=== PATIENT | female | born 1950 | race Caucasian/White ===

== ENCOUNTER 2024-01-21 17:10 | Emergency (ER) | payer MEDICARE, OTHER, SELFPAY ==
[2024-01-21 17:13] VITALS: BP 142/90
[2024-01-21 17:39] VITALS: BP 142/77
[2024-01-21 17:50] LABS: % Basophils 1.1 % (0-2); % Eosinophils 3.1 % (0-6); % Immature Granulocytes 0.4 % (0-0.5); % Lymphocytes 42.6 % (20.5-51.1); % Monocytes 9.2 % (1.7-9.3); % Neutrophils 43.6 % (42.2-75.2); Absolute Basophils 0.1 10^3/uL (0-0.2); Absolute Eosinophils 0.2 10^3/uL (0-0.7); Absolute Lymphocytes 3.2 10^3/uL (1.2-3.4); Absolute Monocytes 0.7 10^3/uL (0.1-0.6); Absolute Neutrophils 3.3 10^3/uL (1.4-6.5); Hemoglobin 12.4 g/dL (12.0-16.0); Mean Corp Hgb Conc. 34.4 g/dL (33.0-37.0); Mean Corpuscular Hgb 27.2 pg (27.0-31.0); Mean Corpuscular Volume 78.9 fL (81.0-99.0); Mean Platelet Volume 8.8 fL (7.4-10.4); Nucleated Red Blood Cells % 0 %; Platelet Count 344 10^3/uL (130-400); Red Blood Cell Count 4.56 10^6/uL (4.20-5.40); Red Cell Dist. Width 13.3 % (11.5-14.5); White Blood Cell Count 7.5 10^3/uL (4.8-10.8)
[2024-01-21 18:00] VITALS: BP 146/85
[2024-01-21 18:01] LABS: COVID-19 Antigen Negative (Negative)
[2024-01-21 18:03] LABS: ALT (SGPT) 22 U/L (0-35); AST (SGOT) 25 U/L (14-36); Albumin 4.4 g/dl (3.5-5.0); Alkaline Phosphatase 65 U/L (38-126); Blood Urea Nitrogen 21 mg/dl (7-17); Calcium 9.8 mg/dl (8.4-10.2); Carbon Dioxide 22 mmol/L (22-30); Chloride 97 mmol/L (98-107); Glucose 91 mg/dl (70-99); Potassium 4.4 mmol/L (3.5-5.1); Sodium 134 mmol/L (135-145); Total Bilirubin 0.5 mg/dl (0.2-1.3); Total Protein 6.9 g/dl (6.3-8.2); eGFR > 60.00
[2024-01-21 18:08] VITALS: BMI 25.8
[2024-01-21 18:48] LABS: D-Dimer < 0.27 ug/mlFEU (0.00-0.50)
[2024-01-21 18:49] LABS: Troponin I < 0.012 ng/ml
[2024-01-21 19:01] VITALS: BP 158/83
[2024-01-21] MEDS: INDERAL 10 MG PO (19:13)
--- NOTE | 2024-01-21 19:47 | ED.GENMED ---
History of Present Illness
General
Chief Complaint: Breathing Problem
Source: patient
Exam Limitations: none
Time Seen by Provider: 01/21/24 17:41
History of Present Illness
History of Present Illness:
73-year-old female presents with onset of chest tightness and shortness of breath starting earlier today. She is on her very large amount of stress. She feels she might be having an anxiety attack. She denies fever. The pain is slightly worse
with deep breathing. No known injury. No recent travel or surgery. She is not on any hormones. No leg swelling or calf
Phy Exam
Physical Exam
Physical Exam:
General: Anxious appearing female no acute respiratory distress
HEENT: Normocephalic atraumatic
Heart: Regular rate and rhythm no murmurs
Lungs: Clear no wheeze abdomen: Soft nontender nondistended
Extremities: No cyanosis no calf pain
Scores
Heart Failure Risk
Heart Failure Risk Score: Not Applicable
Course
Orders/Labs/Results
Orders:
Orders
01/21/24 17:17
EKG [Electrocardiogram (*1)] Urgent
Reason for Study: Shortness of Breath
EKG- Treatment ONCE
01/21/24 17:28
CBC/With Diff [Complete Blood Count/With Diff] Urgent
CMP [Comprehensive Metabolic Panel] Urgent
COVID-19 Antigen Urgent
Source: Nasal Swab
01/21/24 18:16
D-Dimer Urgent
Troponin I Urgent
01/21/24 18:43
Propranolol [Inderal] 10 mg PO NOW STA
01/21/24 19:09
CR Chest - 2 Views Urgent
Comment:
Reason For Exam: sob
Abnormal Lab Results
01/21/24
17:28
Hct 36.0 L %
(37.0-47.0)
MCV 78.9 L fL
(81.0-99.0)
Absolute Monos (auto) 0.7 H 10^3/uL
(0.1-0.6)
Sodium 134 L mmol/L
(135-145)
Chloride 97 L mmol/L
(98-107)
BUN 21 H mg/dl
(7-17)
01/21/24 17:28
01/21/24 17:28
Vital Signs
Initial and Last Documented VS:
Initial Vital Signs
Temp Pulse Resp BP Pulse Ox
98.2 F 73 25 142/90 100
01/21/24 17:13 01/21/24 17:13 01/21/24 17:13 01/21/24 17:13 01/21/24 17:13
Last Documented Vital Signs
Temp Pulse Resp BP Pulse Ox
98.2 F 73 20 158/83 98
01/21/24 17:13 01/21/24 19:30 01/21/24 19:41 01/21/24 19:01 01/21/24 19:41
MDM/Problems Addressed
Differential Diagnosis Includes:
Shortness of breath. Pneumonia versus heart failure versus PE versus anxiety
Check labs. Hemoglobin stable D-dimer negative so PE very unlikely. Ordered chest x-ray however patient declined.
With time awaiting for labs patient states she is feeling much better and wants to go home and is declining x-ray. I suspect likely anxiety
*Critical Care Note
Total Time (30-74mins, 75-104mins- exclusive of procedures): Not Applicable
ED Attending Note
-
Portions of this chart may have been created with voice recognition software.� Occasional wrong word or��sound alike� substitutions may have occurred due to the inherent limitations of voice recognition software.
Discharge Plan
Departure
Patient Disposition: Home (Routine Discharge)
Date of Disposition: 01/21/24
Time of Disposition: 19:49
Patient with high blood pressure during this ER visit?: No
Discharge Problem:
Shortness of breath
Instructions: Shortness of Breath (Dyspnea) (DC)
Referrals:
Gilmar Valdez MD [Family Provider] -
Activity Restrictions/Additional Instructions:
Please return here for worsening symptoms otherwise follow-up with family doctor.
Interventions
Interventions:
*Risk Screen - Suicide Last Done: 01/21/24 18:09
*General Assessment Last Done: 01/21/24 18:09
*Neglect/Abuse Screening Last Done: 01/21/24 18:09
ED- Fall Risk Assessment Last Done: 01/21/24 19:41
*ED COVID-19 Vaccine History Last Done: 01/21/24 18:09
ED- Cardiac Assessment Last Done: 01/21/24 19:41
ED- Pulmonary Assessment Last Done: 01/21/24 19:41
Discharge Date and Time
Print Language: SOUTH KORE[place]
== END 2024-01-21 19:57 | disposition home or self-care (01) ==
LOC: EMR 17:10
PROVIDERS: Emergency Medicine; Physician Assistant; EMERGENCY PHYSICIAN Emergency Medicine; FAMILY PHYSICIAN Internal Medicine
DX: R06.02 Shortness of breath (principal); R07.89 Other chest pain; Z73.3 Stress, not elsewhere classified; Z11.52 Encounter for screening for COVID-19
CPT/HCPCS: 99283; 80053; 84484; 85025; 85379; 87811; 93005

== ENCOUNTER → 2024-01-26 13:53 | Outpatient (REF) | payer MEDICARE, OTHER, SELFPAY | LOC: HWRAD 13:53 | PROVIDERS: ATTENDING PHYSICIAN Nurse Practitioner Family; FAMILY PHYSICIAN Internal Medicine | DX: R06.02 Shortness of breath (principal) | CPT/HCPCS: 71046 ==

== ENCOUNTER → 2024-02-09 15:09 | Outpatient (REF) | payer MEDICARE, OTHER, SELFPAY | LOC: RAD 15:09 | PROVIDERS: ATTENDING PHYSICIAN Nurse Practitioner Family; FAMILY PHYSICIAN Internal Medicine | DX: M79.604 Pain in right leg (principal); M79.605 Pain in left leg; R06.02 Shortness of breath | CPT/HCPCS: 93970 ==

== ENCOUNTER 2024-04-21 09:01 | Emergency (ER) | payer MEDICARE, OTHER, SELFPAY ==
[2024-04-21 09:03] VITALS: BP 146/100
[2024-04-21 09:16] VITALS: BMI 25.7
[2024-04-21] MEDS: DECADRON 10 MG IV (10:09)
[2024-04-21] MEDS: NSS 250 IV (10:09)
[2024-04-21] MEDS: BENADRYL 12.5 MG IV (10:09)
[2024-04-21] MEDS: PEPCID 20 MG IV (10:10)
[2024-04-21] MEDS: TORADOL 15 MG IV (10:10)
--- NOTE | 2024-04-21 10:18 | ED.GENMED ---
History of Present Illness
General
Chief Complaint: Throat Problem
Source: patient
Exam Limitations: none
Time Seen by Provider: 04/21/24 09:26
Nursing documentation reviewed up to this point in time: agreed with
History of Present Illness
History of Present Illness:
Patient presents to ED secondary to generalized itchy rash started 5 days ago, along with worsening throat pain with swelling over the past 3 days. Patient was seen by her primary care physician 3 days ago and has been started on steroids. Since
then, her rash has improved, but unfortunately her throat swelling has worsened. Denies fever or chills. Denies nausea, vomiting, or diarrhea. Denies abdominal pain. Denies shortness of breath. Patient has had difficult time eating secondary to
pain with swallowing. Denies previous history of similar symptoms. Of note, patient was started on Lamictal for the first time 1 week ago and dose increased to 5 days ago, prior to onset of symptoms, secondary to depression. Patient is still
taking Lamictal, although she did not take her tablet this morning.
Review of Systems
Review of Systems
Allergies reviewed?: Yes
All Other Systems: ROS reviewed and negative except as documented in HPI and ROS
Constitutional: Reports no symptoms
EENT: Reports sore throat
Respiratory: Reports no symptoms; Denies cough or trouble breathing
Cardiac: Reports no symptoms
ABD/GI: Reports no symptoms
Musculoskeletal: Reports no symptoms
Skin: Reports no symptoms
Neurological: Reports no symptoms
Phy Exam
Physical Exam
Physical Exam:
Physical Exam
General: no apparent distress, not acutely ill. afebrile
Head: nc/at. eomi
Neck: supple. no meningeal signs. normal posterior pharynx. no lymphadenopathy noted.
Heart: s1/s2 regular rate and rhythm, no murmur. equal radial pulses.
Lungs: no acute respiratory distress. clear bilaterally
Abdomen: normal bowel sounds. not tender.
Neuro: alert and oriented. no focal neurological deficits
Skin: no rash
Psychiatric: well kept. interactive and cooperative
Extremities: no edema. no calf tenderness.
Course
Orders/Labs/Results
Orders:
Orders
04/21/24 09:52
Dexamethasone Sod Phosphate [Decadron] 10 mg IV NOW STA
Diphenhydramine [Benadryl] 12.5 mg IV NOW STA
Famotidine [Pepcid] 20 mg IV NOW STA
04/21/24 09:53
0.9% Sodium Chloride 250 ml [Nss] 250 ml IV BOLUS
Ketorolac [Toradol] 15 mg IV NOW STA
04/21/24 11:31
CT Neck With Iv Contrast Urgent
Comment:
Reason For Exam: throat swelling w pain, difficulty swallowing
04/21/24 11:32
Basic Metabolic Panel Urgent
Complete Blood Count/With Diff Urgent
Abnormal Lab Results
04/21/24
11:32
Absolute Lymphs (auto) 0.6 L 10^3/uL
(1.2-3.4)
Lymphocytes % 9.6 L %
(20.5-51.1)
Eosinophils % 7.9 H %
(0-6)
Sodium 131 L mmol/L
(135-145)
Chloride 94 L mmol/L
(98-107)
04/21/24 11:32
04/21/24 11:32
Vital Signs
Initial and Last Documented VS:
Initial Vital Signs
Temp Pulse Resp BP Pulse Ox
98.4 F 83 18 146/100 99
04/21/24 09:03 04/21/24 09:03 04/21/24 09:03 04/21/24 09:03 04/21/24 09:03
Last Documented Vital Signs
Temp Pulse Resp BP Pulse Ox
98.4 F 76 13 146/100 100
04/21/24 09:03 04/21/24 10:16 04/21/24 10:16 04/21/24 09:03 04/21/24 10:16
MDM/Problems Addressed
MDM/Problems Addressed:
Patient remains hemodynamically stable without any acute respiratory distress during observation. Patient with improvement in areas of erythema after treatment. However, patient does continue to experience throat discomfort. As such, decision
made to obtain CT neck to evaluate for potential airway compromise versus any other etiology for her symptoms.
CT neck with IV contrast without any acute findings, although suggestive of mild-tonsillitis. Airway intact. Discussed with patient and family at bedside regarding treatment plan, including discharge home with discontinuation of Lamictal which may
be the offending agent, along with continuation of already prescribed taper dose of prednisone. Patient advised to follow-up with PCP for reevaluation, or return to ED with any worsening symptoms.
*Critical Care Note
Total Time (30-74mins, 75-104mins- exclusive of procedures): Not Applicable
ED Attending Note
-
Portions of this chart may have been created with voice recognition software.� Occasional wrong word or��sound alike� substitutions may have occurred due to the inherent limitations of voice recognition software.
Discharge Plan
Departure
Patient Disposition: Home (Routine Discharge)
Date of Disposition: 04/21/24
Time of Disposition: 13:29
Patient with high blood pressure during this ER visit?: Yes
Condition: Good
Discharge Problem:
Allergic reaction
Instructions: Allergic Reaction ED
Referrals:
Gilmar Valdez MD [Family Provider] -
Activity Restrictions/Additional Instructions:
As discussed, please follow-up with your primary care physician for reevaluation. Please consider returning to ED ED with any worsening symptoms, especially with worsening pain/swelling or difficulty with swallowing.
Interventions
Interventions:
*Risk Screen - Suicide Last Done: 04/21/24 09:03
*General Assessment Last Done: 04/21/24 09:03
*Neglect/Abuse Screening Last Done: 04/21/24 09:03
*Nursing Disposition Last Done: 04/21/24 14:08
ED-EENT Assessment Last Done: 04/21/24 09:16
ED- Pulmonary Assessment Last Done: 04/21/24 09:16
ED-Skin Assessment Last Done: 04/21/24 09:17
Discharge Date and Time
Discharge Date/Time: 04/21/24 14:12
Print Language: ETHIOPIAN
[2024-04-21 11:41] LABS: % Basophils 0.4 % (0-2); % Eosinophils 7.9 % (0-6); % Immature Granulocytes 0.3 % (0-0.5); % Lymphocytes 9.6 % (20.5-51.1); % Monocytes 8.1 % (1.7-9.3); % Neutrophils 73.7 % (42.2-75.2); Absolute Eosinophils 0.5 10^3/uL (0-0.7); Absolute Lymphocytes 0.6 10^3/uL (1.2-3.4); Absolute Monocytes 0.5 10^3/uL (0.1-0.6); Absolute Neutrophils 4.9 10^3/uL (1.4-6.5); Hematocrit 37.5 % (37.0-47.0); Hemoglobin 12.7 g/dL (12.0-16.0); Mean Corp Hgb Conc. 33.9 g/dL (33.0-37.0); Mean Corpuscular Hgb 27.9 pg (27.0-31.0); Mean Corpuscular Volume 82.2 fL (81.0-99.0); Mean Platelet Volume 9.2 fL (7.4-10.4); Nucleated Red Blood Cells % 0 %; Platelet Count 226 10^3/uL (130-400); Red Blood Cell Count 4.56 10^6/uL (4.20-5.40); Red Cell Dist. Width 13.6 % (11.5-14.5); White Blood Cell Count 6.7 10^3/uL (4.8-10.8)
[2024-04-21 11:53] LABS: Blood Urea Nitrogen 11 mg/dl (7-17); Calcium 8.9 mg/dl (8.4-10.2); Carbon Dioxide 26 mmol/L (22-30); Chloride 94 mmol/L (98-107); Estimated Creatinine Clearance 65 ml/min; Glucose 87 mg/dl (70-99); Potassium 3.9 mmol/L (3.5-5.1); Sodium 131 mmol/L (135-145); eGFR > 60.00
== END 2024-04-21 14:12 | disposition home or self-care (01) ==
LOC: EMR 09:01
PROVIDERS: EMERGENCY PHYSICIAN Emergency Medicine; FAMILY PHYSICIAN Internal Medicine
DX: R21 Rash and other nonspecific skin eruption (principal); R07.0 Pain in throat; R13.10 Dysphagia, unspecified; T50.905A Adverse effect of unspecified drugs, medicaments and biological substances, initial encounter; R03.0 Elevated blood-pressure reading, without diagnosis of hypertension
CPT/HCPCS: 99285; 96374; 96375 ×3; 70491; 80048; 85025; Q9967

== ENCOUNTER 2024-05-17 05:22 | Inpatient (IN) | payer MEDICARE, OTHER, SELFPAY ==
[2024-05-17] VITALS (38 sets, daily range): BP systolic 90–159; BP diastolic 54–97; PULSE 102–104; O2SAT 98–100; BMI 25.2; BMI 24.7
--- NOTE | 2024-05-17 01:54 | ED.GENMED ---
History of Present Illness
General
Chief Complaint: Allergic Reaction
Source: patient, spouse and family (Daughter)
Time Seen by Provider: 05/17/24 01:49
Nursing documentation reviewed up to this point in time: agreed with
History of Present Illness
History of Present Illness:
This a pleasant 74-year-old female presents to the emergency department with allergic reaction. She has been having symptoms for the last month. She was seen at [facility] emergency department and discharged home. She then states that her
symptoms returned and went to [facility] for which she was admitted for 17 days diagnosed with dress syndrome. She was discharged on May 13 from [place] on the road to recovery. Today the symptoms worsened so she came to [facility]
hospital. Nonnormal was called. She received epinephrine 0.3 mg IM x 2, albuterol and IV fluids. Upon arrival patient was in severe distress. She did receive more epinephrine, Solu-Medrol, Benadryl, Pepcid, Ativan, and fluids. Patient
protecting her airway.
Phy Exam
General Physical Exam
General Presentation: well appearing and no apparent distress
General Skin: warm and dry
General Habitus: normal
General Mental: alert
General Hydration: appears well hydrated
ENT Exam
ENT Exam: EOMI, pharynx normal, neck supple and normocephalic
Eye Exam
Eye Exam: PERRL, cornea clear and conjunctiva normal
Cardiovascular Exam
Cardiovascular Exam: regular rate/rhythm, no edema, no murmur and normal peripheral pulses
Pulmonary Exam
Pulmonary Exam: lungs clear, generalized wheezing (Resolved with albuterol) and respiratory distress
Respiratory Effort: poor respiratory effort
Breath Sounds: Wheeze: generalized
Gastrointestinal Exam
Gastrointestinal Exam: normal bowel sounds, non tender, soft, no organomegaly, no pulsatile mass and non distended
Neurological Exam
Neurological Exam: alert and oriented x3
Musculoskeletal Exam
Musculoskeletal Exam: full ROM
Skin Exam
Skin Exam: erythema, redness and warmth
Psychiatric Exam
Psychiatric Exam: normal mood/affect
Course
Orders/Labs/Results
Orders:
Orders
05/17/24 01:49
Diphenhydramine [Benadryl] 25 mg IV NOW STA
EPINEPHrine PF [Adrenalin] 0.3 mg IM NOW STA
Famotidine [Pepcid] 20 mg IV NOW STA
MethylPREDNISolone PF [Solu-Medrol Pf] 125 mg IV NOW STA
05/17/24 02:18
Cardiac Monitoring- Treatment ONCE
Vital Signs- Treatment ONCE
Frequency: q15m
0.9% Sodium Chloride 1000 ml [Nss] 1,000 ml IV BOLUS
Pulse Ox/cont/shift [RESP] Stat
Quantity: 1
05/17/24 02:19
Electrocardiogram (*1) Stat
Reason for Study: Other
Other Reason for Exam: Allergy
EKG- Treatment ONCE
05/17/24 02:22
Basic Metabolic Panel Urgent
Comment: NO K
C-Reactive Protein Urgent
Comment: ADD ON
Complete Blood Count/With Diff Urgent
Erythrocyte Sed Rate Urgent
Comment: ADD ON
05/17/24 02:24
Lorazepam [Ativan] 0.5 mg IV NOW STA
05/17/24 02:36
Add On- LAB Urgent
Tests Added?: crp, sed
05/17/24 03:04
CMP [Comprehensive Metabolic Panel] Urgent
Abnormal Lab Results
05/17/24 05/17/24
02:22 03:04
WBC 12.1 H 10^3/uL
(4.8-10.8)
RBC 3.83 L 10^6/uL
(4.20-5.40)
Hgb 10.7 L g/dL
(12.0-16.0)
Hct 32.2 L %
(37.0-47.0)
RDW 16.6 H %
(11.5-14.5)
Plt Count 668 H 10^3/uL
(130-400)
Sodium 130 L mmol/L 129 L mmol/L
(135-145) (135-145)
Potassium 3.1 L mmol/L
(3.5-5.1)
Carbon Dioxide 19 L mmol/L 18 L mmol/L
(22-30) (22-30)
BUN 18 H mg/dl
(7-17)
Creatinine 0.5 L mg/dL 0.5 L mg/dL
(0.6-1.0) (0.6-1.0)
Glucose 146 H mg/dl 176 H mg/dl
(70-99) (70-99)
Calcium 8.3 L mg/dl 7.7 L mg/dl
(8.4-10.2) (8.4-10.2)
C-Reactive Protein 43.50 H mg/L
(0.0-10.00)
Total Protein 4.9 L g/dl
(6.3-8.2)
Albumin 2.5 L g/dl
(3.5-5.0)
05/17/24 02:22
05/17/24 03:04
Vital Signs
Initial and Last Documented VS:
Initial Vital Signs
Pulse Resp BP Pulse Ox
115 19 129/68 100
05/17/24 01:21 05/17/24 01:21 05/17/24 01:21 05/17/24 01:21
Last Documented Vital Signs
Temp Pulse Resp BP Pulse Ox
98.9 F 124 21 155/62 98
05/17/24 01:22 05/17/24 03:15 05/17/24 03:15 05/17/24 03:15 05/17/24 03:15
*Pulse Oximetry
Patient hypoxic: no
*Sink Maker Interpretation
Rate: tachycardiac
Interpretation: normal
Heart Rate: 113
Rhythm: sinus tachycardia
*Critical Care Note
Total Time (30-74mins, 75-104mins- exclusive of procedures): 50 (Critical care statement: A total of 50 minutes of critical care time was provided for this patient. This time is separate from time utilized to perform the aforementioned documented
procedures. Aggregate critical care time includes only time during which I was engaged in work directl)
Data Reviewed
Review of Other/Old Records Reveals: Records and Discharge Summary
Source: patient, significant other and family
ED Attending Note
-
Portions of this chart may have been created with voice recognition software.� Occasional wrong word or��sound alike� substitutions may have occurred due to the inherent limitations of voice recognition software.
Discharge Plan
Departure
Patient Disposition: Admit
Date of Disposition: 05/17/24
Time of Disposition: 03:29
Admit to: ICU
Presentation/result/management discussed w/ accepting MD/DO: Hospitalist
Discharge Problem:
DRESS syndrome
Prescriptions:
No Action
sertraline [Zoloft] 100 mg Tablet
100 mg PO DAILY
simvastatin 10 mg Tablet
10 mg
pantoprazole [Protonix] 20 mg Tablet,Delayed Release (Dr/Ec)
20 mg PO DAILY
prednisone 10 mg Tablets,Dose Pack
See Taper
Taper: Prednisone DC Starting at 50 mg daily
50 mg Daily for 3 Days and 0 Hour
40 mg Daily for 3 Days and 0 Hour
30 mg Daily for 3 Days and 0 Hour
20 mg Daily for 3 Days and 0 Hour
10 mg Daily for 3 Days and 0 Hour
lorazepam 0.5 mg Tablet
0.5 mg PO BID PRN (Reason: anxiety)
hydroxyzine HCl [Atarax] 25 mg Tablet
25 mg PO TID
Referrals:
UNKNOWN,NO INTERVIEW [Family Provider] -
Interventions
Interventions:
*Risk Screen - Suicide Last Done: 05/17/24 01:22
*General Assessment Last Done: 05/17/24 01:22
*Neglect/Abuse Screening Last Done: 05/17/24 01:22
ED- Fall Risk Assessment Last Done: 05/17/24 01:39
*ED COVID-19 Vaccine History Last Done: 05/17/24 01:39
ED- Cardiac Assessment Last Done: 05/17/24 01:39
ED- Pulmonary Assessment Last Done: 05/17/24 01:39
ED-Skin Assessment Last Done: 05/17/24 01:39
Discharge Date and Time
Print Language: ARMENIAN
[2024-05-17] MEDS: ADRENALIN 0.3 MG IM (02:05)
[2024-05-17] MEDS: BENADRYL 25 MG IV ×5 (02:05→18:39)
[2024-05-17] MEDS: SOLU-MEDROL PF 125 MG IV (02:05)
[2024-05-17] MEDS: PEPCID 20 MG IV (02:06)
[2024-05-17] MEDS: ATIVAN 0.5 MG IV (02:28)
[2024-05-17] MEDS: NSS 1000 IV (02:29)
[2024-05-17 02:52] LABS: Hematocrit 32.2 % (37.0-47.0); Hemoglobin 10.7 g/dL (12.0-16.0); Mean Corp Hgb Conc. 33.2 g/dL (33.0-37.0); Mean Corpuscular Hgb 27.9 pg (27.0-31.0); Mean Corpuscular Volume 84.1 fL (81.0-99.0); Mean Platelet Volume 8.5 fL (7.4-10.4); Platelet Count 668 10^3/uL (130-400); Red Blood Cell Count 3.83 10^6/uL (4.20-5.40); Red Cell Dist. Width 16.6 % (11.5-14.5); White Blood Cell Count 12.1 10^3/uL (4.8-10.8)
[2024-05-17 02:57] LABS: Blood Urea Nitrogen 18 mg/dl (7-17); Calcium 8.3 mg/dl (8.4-10.2); Carbon Dioxide 19 mmol/L (22-30); Chloride 99 mmol/L (98-107); Estimated Creatinine Clearance 67 ml/min; Glucose 146 mg/dl (70-99); Sodium 130 mmol/L (135-145); eGFR > 60.00
[2024-05-17 03:22] LABS: ALT (SGPT) 23 U/L (0-35); AST (SGOT) 19 U/L (14-36); Albumin 2.5 g/dl (3.5-5.0); Alkaline Phosphatase 86 U/L (38-126); Blood Urea Nitrogen 17 mg/dl (7-17); Calcium 7.7 mg/dl (8.4-10.2); Carbon Dioxide 18 mmol/L (22-30); Chloride 102 mmol/L (98-107); Estimated Creatinine Clearance 67 ml/min; Glucose 176 mg/dl (70-99); Potassium 3.1 mmol/L (3.5-5.1); Sodium 129 mmol/L (135-145); Total Bilirubin 0.4 mg/dl (0.2-1.3); Total Protein 4.9 g/dl (6.3-8.2); eGFR > 60.00
[2024-05-17 04:31] LABS: Erythrocyte Sed Rate 19 mm/hour (0-20)
--- NOTE | 2024-05-17 04:33 | HPS.HSE ---
Family Physician
-
Family Physician: NO INTERVIEW UNKNOWN
Chief Complaint
-
SOB, Trouble Swallowing, Itchy Rash
History of Present Illness
Patient is a 74y F with PMH significant for asthma, eczema and depression who presents to ED complaining of diffuse / itchy rash, SOB and trouble swallowing. Patient notes that she started on Lamictal for mood about 2 months ago. About 3 weeks
later - and shortly after a dose increase - patient developed diffuse rash / itching. She presented to her PCP and was given a steroid dose pack without significant improvement. She was seen in the ED here on 04/21 and advised to continue her
steroid course. Patient states that she presented to [facility] a few days later and was admitted.
Patient was in [facility] for about 17 days. She was treated for possible DRESS with high-dose steroids. Patient had endoscopy done due to pain / difficult swallowing which was reportedly unremarkable.
She was discharged to home on with instructions for tapering doses of prednisone. She is currently on 30mg / day and has noted that her symptoms have gradually started to return since her discharge.
This evening, patient noted itching in her throat and became markedly short of breath.
She called 911 and was transported to the ED for further evaluation.
Patient was in extremis and received 2 doses of IM epinephrine via EMS and an additional dose here in the ED.
She received a bolus dose of IV steroids as well as Benadryl, Pepcid and Ativan.
At the time of my examination, patient feels much improved.
She continues to have diffuse / severe itching. She continues to complain of difficult swallowing.
Medical History
Past Medical History
Past Medical History: Reports Other
Additional Past Medical History:
Asthma
Eczema
Anxiety / Depression
Migraine Headaches
Non-Melanoma Skin Cancer
Past Surgical History: Reports Other
Additional Past Surgical History:
D&C
Skin Cancer Excisions
Social History
Tobacco: Non-smoker
Alcohol: Former (Previously used alcohol to some extent as anxiolytic. No EtOH at all in 6 months.)
Personal:
Living: With Family
Family History
Family History: Other (Brother: DRESS secondary to vancomycin.)
Allergies / Home Medications
Allergies reflects when Allergies were last updated in [facility].
Home Medications with original date entered in [facility]
Allergy/Medication List:
Allergies
Allergy/AdvReac Type Severity Reaction Status Date / Time
lamotrigine [From Lamictal] Allergy Severe Jo Verified 05/17/24 01:53
Dominic
[place]
vancomycin Allergy Severe Jo Verified 05/17/24 01:53
Dominic
[place]
Home Medications
hydroxyzine HCl 25 mg tablet 25 mg PO TID 05/17/24
lorazepam 0.5 mg tablet 0.5 mg PO BID PRN anxiety 05/17/24
pantoprazole 20 mg tablet,delayed release (Protonix) 20 mg PO DAILY 05/17/24
prednisone 10 mg tablets in a dose pack See Taper 05/17/24
sertraline 100 mg tablet (Zoloft) 100 mg PO DAILY 05/17/24
simvastatin 10 mg tablet 10 mg 05/17/24
Review of Systems
-
History Source: Patient
A 12 point ROS was completed and negative except as noted: Yes
Constitutional: Reports Fatigue; Denies Fever or Chills
EENT: Reports Sore Throat; Denies Runny Nose
Respiratory: Reports Trouble Breathing; Denies Cough or Hemoptysis
Cardiac: Denies Chest Pain or Palpitations
Abdomen/GI: Denies Abdominal Pain, Nausea, Vomiting or Diarrhea
: Reports Dysuria; Denies Frequency or Flank Pain
Musculoskeletal: Denies Joint Pain or Edema
Skin: Reports Itching and Rash
Neurological: Reports Headache; Denies Dizzy
Psych: Reports Depression and Anxiety
Physical Exam
Vital Signs
Vital Signs
Temp Pulse Resp BP Pulse Ox
98.9 F 119 22 136/65 96
05/17/24 01:22 05/17/24 04:15 05/17/24 04:15 05/17/24 04:15 05/17/24 04:15
Physical Exam
General: Other (74y F in mild - moderate distress due to itching / rash. )
HEENT: Other (Generalized erythema of mucosa without pustules, papules, etc. No ulcerations. Very dry MM with cracked lips, etc.)
Respiratory: Clear; No Wheezes, Rales or Rhonchi
Cardiac: S1/S2 and Tachycardia; No Murmur
GI: Soft, Non Tender, Non Distended and Normal Bowel Sounds
Musculoskeletal: No Clubbing, No Cyanosis and No Edema
Skin: Other (Diffuse erythema and eczematous rash with superficial excoriations. Facial edema with mild erythema - improved from initial arrival.)
Neuro: AO x 3 and Nonfocal/grossly intact
Laboratory Results
-
05/17/24 02:22
05/17/24 03:04
Laboratory Results
Total Bilirubin 0.4 mg/dl (0.2-1.3) 05/17/24 03:04
AST 19 U/L (14-36) 05/17/24 03:04
ALT 23 U/L (0-35) 05/17/24 03:04
Alkaline Phosphatase 86 U/L (38-126) 05/17/24 03:04
Impression/Plan
-
A/P: Patient is a 74y F with PMH significant for recent DRESS secondary to Lamictal who presents to ED for evaluation of increased itching, swallow dysfunction and SOB.
DRESS
- Admit to ICU given airway concerns s/p epi administration x 3 this evening.
- Monitor closely.
- Resume high dose steroids (prednisone at 1mg/kg for now).
- Would taper very slowly over at least 12 weeks.
- Consider formal Immunology evaluation for additional recommendations.
- Supportive care with wound care / topical therapies, IVFs, antipruritics, etc.
- Trial of gabapentin for intractable itching.
- Follow for any new / worsening symptoms.
- No current evidence of organ impairment (renal or hepatic).
- No current evidence of herpetic infection.
- Obtain recent records from [facility] for review.
Asthma without Acute Exacerbation
Eczema
Family History of DRESS
- Patient with multiple 'atopic' diagnoses and interestingly family h/o DRESS in her brother (secondary to vancomycin).
Hyponatremia
Hypokalemia
- Check urine studies re: hyponatremia.
- Check TFTs.
- Follow for changes with IVF support - patient appears hypovolemic on exam.
- Na level is not significantly changed over the past month.
Normocytic Anemia
- Unclear etiology of anemia. Hgb down 2 grams in the past month.
- Heme test stools on high dose steroids.
- Iron studies, B12, etc.
- PPI BID while on high dose steroids.
Anxiety / Depression
- Continue sertraline. Avoid introducing any new agents.
- OK for Ativan PRN use.
DVT Prophylaxis: Subcut Heparin
Code Status: Full
[2024-05-17 04:42] LABS: Absolute Neutrophils -Man Diff 5.4 10^3/uL (1.4-6.5); Anisocytosis 1+; Atypical Lymphocytes 3 %; Band Neutrophils 5 % (0-3); Eosinophils 22 % (0-6); Hypochromasia 1+; Lymphocytes 23 % (20-51); Metamyelocytes 2 % (-); Monocytes 4 % (2-9); Myelocytes 1 % (-); Normal RBC Morphology No; Platelets Checked Yes; Polychromasia 1+; Segmented Neutrophils 40 % (42-75)
[2024-05-17 04:43] LABS: Acanthocytes 2+; Ovalocytes 1+; Total Cells Counted 100
--- NOTE | 2024-05-17 06:00 | PTCARENOTE ---
Received pt from ED. Pulled pt over from stretcher. AAOx3, SaO2 98-99% on RA. Lungs diminished on auscultation, no wheezing noted. ST on heart monitor. Passed swallow screen and able to take PO pills. L wrist PIV and LAC (pre-hospital) PIV in place.
and daughter at bedside. Pt was able to walk to the bathroom with Ax1. Will continue to monitor.
[2024-05-17] MEDS: KCL 40 MEQ PO (06:08)
[2024-05-17] MEDS: LR 1000 IV ×3 (06:08→21:41)
[2024-05-17] MEDS: TYLENOL 650 MG PO ×2 (06:35→15:16)
[2024-05-17] MEDS: ATIVAN 0.5 MG PO ×2 (06:35→21:38)
[2024-05-17 06:37] LABS: INR 1.22; PT 15.9 Sec (11.4-14.6)
[2024-05-17 06:38] LABS: APTT 26.7 Sec (23.4-35.0)
[2024-05-17 06:48] LABS: Absolute Neutrophils -Man Diff 7.4 10^3/uL (1.4-6.5); Atypical Lymphocytes 2 %; Band Neutrophils 13 % (0-3); Eosinophils 4 % (0-6); Hematocrit 28.8 % (37.0-47.0); Hemoglobin 9.5 g/dL (12.0-16.0); Lymphocytes 10 % (20-51); Mean Corpuscular Hgb 27.1 pg (27.0-31.0); Mean Corpuscular Volume 82.3 fL (81.0-99.0); Mean Platelet Volume 8.5 fL (7.4-10.4); Metamyelocytes 1 % (-); Monocytes 3 % (2-9); Platelet Count 525 10^3/uL (130-400); Red Cell Dist. Width 16.6 % (11.5-14.5); Segmented Neutrophils 67 % (42-75); White Blood Cell Count 9.3 10^3/uL (4.8-10.8)
[2024-05-17 06:49] LABS: Platelets Checked Yes
[2024-05-17 06:50] LABS: Acanthocytes 1+; Anisocytosis 1+; Hypochromasia 1+; Normal RBC Morphology No; Ovalocytes 1+; Polychromasia 1+; Total Cells Counted 100
[2024-05-17 07:11] LABS: ALT (SGPT) 25 U/L (0-35); AST (SGOT) 22 U/L (14-36); Albumin 2.7 g/dl (3.5-5.0); Alkaline Phosphatase 80 U/L (38-126); Blood Urea Nitrogen 15 mg/dl (7-17); Calcium 7.8 mg/dl (8.4-10.2); Carbon Dioxide 17 mmol/L (22-30); Chloride 102 mmol/L (98-107); Direct Bilirubin 0.1 mg/dl (0.0-0.4); Estimated Creatinine Clearance 64 ml/min; Glucose 191 mg/dl (70-99); Iron 28 ug/dl (37-170); Potassium 3.8 mmol/L (3.5-5.1); Sodium 130 mmol/L (135-145); Total Bilirubin 0.3 mg/dl (0.2-1.3); Total Protein 5.2 g/dl (6.3-8.2); eGFR > 60.00
[2024-05-17 07:21] LABS: Percent Saturation 14 % (20-50); Total Iron Binding Capacity 198 ug/dl (265-497)
--- NOTE | 2024-05-17 07:23 | W.PN.HOSP.TC ---
Today's Communication/Plan
-
Continue steroids
Assessment / Plan
Assessment / Plan
Physical Exam
General: Not in acute distress
HEENT: Normocephalic
Respiratory: Clear; No Wheezes, Rales or Rhonchi
Cardiac: S1/S2. Regular Rhythm.
GI: Soft, Non Tender, Non Distended and Normal Bowel Sounds
Musculoskeletal: No Cyanosis and No Edema
Skin: Other (Diffuse erythema and eczematous rash with superficial excoriations. Facial edema with mild erythema - improved from initial arrival.)
Neuro: AO x 3 and Nonfocal/grossly intact
Assessment/Plan
Patient is a 74y F with PMH significant for recent DRESS secondary to Lamictal who presents to ED for evaluation of increased itching, swallow dysfunction and SOB.
Presentation with diffuse/itchy rash, shortness of breath and trouble swallowing
DRESS
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
- Initially admitted to ICU given airway concerns s/p epi administration x 3.
- Started Lamictal about 2 months ago, after titration, had rash around 04/22/24, was started on steroids, then hospitalized at [place], given IV steroids and PO steroids were tapered at that time -- was hospitalized for 17
days
- She was discharged from [facility] last 05/13/24 with a tapering prednisone dose. Currently taking 30 mg daily. Symptoms gradually started since discharge.
- Resume high dose steroids (prednisone at 1mg/kg for now).
- Status post IV Solu-Medrol 125 mg in the emergency room.
- Continue prednisone 60 mg, slow taper going forward over the next 3 months (patient was at 30 mg and developed symptoms)
- Immunology evaluation outpatient.
- Supportive care with wound care / topical therapies, IVFs, antipruritics, etc.
- Trial of gabapentin for intractable itching. Also hydroxyzine.
Asthma without Acute Exacerbation
Eczema
Family History of DRESS
- Patient with multiple 'atopic' diagnoses and interestingly family h/o DRESS in her brother (secondary to vancomycin).
Dysphagia
- EGD done at [place] was unremarkable
- Continue PPI BID
Hyponatremia
Hypokalemia
- Check urine studies re: hyponatremia.
- TSH is 1
- Na level is not significantly changed over the past month.
Non gap metabolic acidosis-likely due to normal saline
Microcytic anemia/thrombocytosis
Normocytic Anemia
- Unclear etiology of anemia but possibly associated with DRESS
- Heme test stools on high dose steroids.
- Iron studies, B12, etc.
- PPI BID while on high dose steroids.
Anxiety / Depression
- Continue sertraline. Avoid introducing any new agents.
- OK for Ativan PRN use.
Migraine headaches
Skin cancer-nonmelanoma
Hypercholesterolemia
DVT Prophylaxis: Subcut Heparin
Diet/Speech: Regular Solids/Thin Liquids
Code Status: Full Code
Anticipated Discharge: > 48 hours
Subjective/Interval History
-
Date of Service: May 17, 2024
Patient was seen and examined. Overall she felt better than when she came in, still with the rash and some trouble with swallowing.
Objective Data
-
Labs:
Laboratory Results
05/17/24 05/17/24 05/17/24
02:22 03:04 06:18
WBC 12.1 H 9.3
Hgb 10.7 L 9.5 L
Hct 32.2 L 28.8 L
Plt Count 668 H 525 H D
PT 15.9 H
INR 1.22
APTT 26.7
Sodium 130 L 129 L 130 L
Potassium 3.1 L 3.8
Chloride 99 102 102
Carbon Dioxide 19 L 18 L 17 L
BUN 18 H 17 15
Creatinine 0.5 L 0.5 L 0.5 L
Glucose 146 H 176 H 191 H
Calcium 8.3 L 7.7 L 7.8 L
Total Bilirubin Cancelled 0.4 0.3
AST Cancelled 19 22
ALT Cancelled 23 25
Alkaline Phosphatase Cancelled 86 80
Vital Signs:
Vital Signs
Temp Pulse Resp BP Pulse Ox
99.5 F 115 26 136/96 99
05/17/24 05:32 05/17/24 07:00 05/17/24 07:00 05/17/24 06:45 05/17/24 06:30
[2024-05-17] MEDS: NEURONTIN 100 MG PO ×3 (07:29→21:38)
[2024-05-17] MEDS: ATARAX 25 MG PO ×3 (07:29→21:37)
[2024-05-17] MEDS: DELTASONE 60 MG PO (07:29)
[2024-05-17] MEDS: HEPARIN 5000 UNITS SC ×2 (07:30→19:06)
[2024-05-17] MEDS: PROTONIX 40 MG PO ×2 (07:30→19:06)
[2024-05-17] MEDS: ZOLOFT 100 MG PO (07:30)
[2024-05-17 08:12] LABS: Folate > 20.0 ng/ml (2.76-20); Vitamin B12 557 pg/ml (239-931)
--- NOTE | 2024-05-17 10:20 | PTOTSP ---
Speech Language Pathology
Pt seen for clinical bedside swallow evaluation. RN reported no difficulty with meds with water. Pt complaining of pain when swallowing saliva, but denied difficulty with food/liquids initially. P.O. trials of puree, regular solids, and thin
liquids provided. Adequate mastication, bolus formation, and A-P transit noted with no oral residue. No overt signs of aspiration.
Pt complaining of pain when swallowing. Suspect odynophagia, not a true dysphagia.
Recommend:
(1) Regular solids/thin liquids. Pt likely to order softer items for comfort at least initially
(2) Aspiration precautions: sit upright, slow rate
(3) Meds whole with liquids as tolerated
(4) COMMERCIAL CONSTRUCTION SUPERINTENDENT to continue to follow
--- NOTE | 2024-05-17 10:39 | CON.INTV ---
Consultation
Consultation Request
Date/Time Consultation Requested: 05/17/2024
Date/Time Consultation Performed: 05/17/2024
Requesting Provider: Dr. Cintron
Performing Provider: Dr. Bolivar Dos Santos
Reason for Consultation: Shortness of breath/DRESS
Medical History
-
History of Present Illness:
74-year-old woman with past medical history significant for asthma, eczema, depression who presented to the emergency room complaining of diffuse/itchy rash, shortness of breath and trouble swallowing. She reports starting Lamictal about 2 months
ago. Few weeks later after titration patient developed a rash and pruritus. Treated in the outpatient with oral steroid with improvement. In early April seen in the emergency room and advised to continue with the steroids.
She went to [facility] few days later and was admitted to the hospital for observation and IV corticosteroids. Apparently admitted to [facility] for 17 days. Rx for possible DRESS.
Reports EGD at [facility], due to dysphagia, and was normal.
She was discharged from the hospital last with a tapering prednisone dose. Currently taking 30 mg daily. Symptoms gradually started since discharge.
Patient became short of breath with an itchy throat the day of admission. EMS was called and she was brought in for evaluation.
Patient received epinephrine by EMS and in the emergency room.
Patient improved with therapy of high dose of the steroids as well.
Continues to report severe itching and difficulty swallowing.
No evident thyroid edema.
Past Medical History
Past Medical History: Other (see assessment and plan)
Social History
Tobacco: Non-smoker
Alcohol: Former (Used to use alcohol for anxiolytic. Has not drank in 6 months.)
Personal:
Living: With Family
Family History
Family History: Other (Brother with DRESS from vancomycin)
Allergies / Home Medications
Allergies
Allergy/AdvReac Type Severity Reaction Status Date / Time
lamotrigine [From Lamictal] Allergy Severe Jo Verified 05/17/24 01:53
Dominic
[place]
vancomycin Allergy Severe Jo Verified 05/17/24 01:53
Dominic
[place]
Home Medications
�Medication �Instructions �Recorded �Confirmed �Last Taken �Type
hydroxyzine HCl 25 mg tablet 25 mg PO TID 05/17/24 05/17/24 Unknown History
lorazepam 0.5 mg tablet 0.5 mg PO BID PRN anxiety 05/17/24 05/17/24 Unknown History
pantoprazole 20 mg tablet,delayed 20 mg PO DAILY 05/17/24 05/17/24 Unknown History
release (Protonix)
prednisone 10 mg tablets in a dose See Taper 05/17/24 Unknown History
pack
sertraline 100 mg tablet (Zoloft) 100 mg PO DAILY 05/17/24 05/17/24 Unknown History
simvastatin 10 mg tablet 10 mg 05/17/24 Unknown History
Review of Systems
-
History Source: Patient
All other systems: Negative unless noted
Vitals / Labs / Diagnostic Testing
Vital Signs
Temp Pulse Resp BP Pulse Ox
98.2 F 109 18 112/91 98
05/17/24 07:00 05/17/24 08:15 05/17/24 08:15 05/17/24 08:00 05/17/24 08:15
Lab Data
05/17/24 06:18
05/17/24 06:18
Laboratory Results
05/17/24
06:18
PT 15.9 H
INR 1.22
APTT 26.7
Diagnostic Testing:
Physical Exam
-
HEENT: Normocephalic and Other (No stridor on exam)
Cardiovascular: S1/S2
Respiratory: Clear and Non-Labored Respirations
GI: Soft and Non Distended
Neurology: Awake, AO x 3 and No Motor Deficits
Skin: Warm and Other (Generalized pruritic rash, scratch tijerina.)
General: Comfortable and Other
Assessment
-
74-year-old woman with past medical history noted, recently discharged from [facility] after being treated for DRESS with steroids. Reports undergoing EGD that was unremarkable. Was on 30 mg of prednisone. She was discharged on 05/09/2024.
Progressively symptoms restarted. Developed shortness of breath and itchy throat. Came to the emergency room for evaluation. Also complaining of pruritus. Transferred to the critical care unit for airway monitoring. 05/17/2024
Shortness of breath/possible airway compromise from drug reaction.
Status post epinephrine x 3
Chest x-ray clear
Peripheral eosinophilia documented 7.9% 04/21/2024([facility] emergency room visit)
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
17-day admission at [facility] discharged 05/09/2024 on prednisone.
? Dysphagia
Hyponatremia
Non gap metabolic acidosis-likely due to normal saline
Microcytic anemia/thrombocytosis
Conditions present prior admission:
[facility] admission for 2 weeks discharge 05/09/2024- DRESS from Lamictal
On prednisone
Reports undergoing EGD that was unremarkable. Complaining of swallowing problems.
Asthma
Eczema
Anxiety/depression
Migraine headaches
Skin cancer-nonmelanoma
Hypercholesterolemia
-
Assessment and plan:
Patient was transferred to the critical care unit overnight for airway monitoring.
So far no evidence for airway edema or angioedema
No stridor on exam
Passed speech evaluation and diet has been advanced
Lung exam without bronchospasm
Not requiring oxygen supplementation
Hemodynamically stable
Normal renal function
Normal LFTs
Normal TSH
Chest x-ray without infiltrates or pneumonitis. Not bronchospastic on exam.
EKG 05/17/2024: Reviewed sinus tachycardia. Otherwise normal.
Benign abdominal exam.
-
Obtain proBNP and troponin
-
Status post IV Solu-Medrol 125 mg in the emergency room.
Continue prednisone 60 mg, slow taper going forward over the next 3 months. Patient was at 30 mg and developed symptoms.
May need immunology evaluation in the outpatient setting.
Continue PPI twice a day
Continue hydroxyzine
Gabapentin started for pruritus
Albuterol HFA as needed-not bronchospastic on exam. Does not take any inhalers in the outpatient with history of asthma.
-
Nongap acidosis likely due to normal saline
Complete current lactate Brenton bag and advance diet.
Renal function is normal
Patient not hypotensive
-
Complains of dysphagia.
Patient reports recent ?EGD at [facility] that was normal. Records been requested.
No evident angioedema on exam.
Okay to advance diet per speech.
She even underwent CT of the neck 04/21/2024 in the emergency room at [facility]: Significant artifact and no acute abnormalities were found
She has been complaining of this for the last 2 months.
-
Anemia noted: So far no evidence for GI bleed
Continue PPI
Follow H&H
-
DVT prophylaxis heparin subcu
-
If remains stable and able to tolerate diet okay to transfer to telemetry.
Critical care team will sign off if patient is transferred.
Call pulmonary if any respiratory issues arise.
-
--- NOTE | 2024-05-17 10:51 | PTCARENOTE ---
Pt very weak. Ambulated with RN to bathroom. While getting off toilet, pt slipped down onto one knee. Denies any injuries. Walker provided. physical therapy already ordered. Pt agrees not to get OOB without assistance. All other assessments
unchanged.
[2024-05-17 20:55] LABS: Troponin I < 0.012 ng/ml
--- NOTE | 2024-05-17 21:08 | PTCARENOTE ---
Received report from off going RN. Patient received in bed. AAOx3 and able to make her needs known. Sinus tachy on the monitor with HR 102-115.. 95% on room air. Palpable pulses. Skin is warm and red with rash. Scheduled medications administered.
Report called to RN in 4E. The patient assisted in moving from ICU bed to her 4E bed. Patient is extremely weak and had difficulty with moving herself. Pt assisted with transfer to bed. Patient transferred to room 407-2 with monitor. Remained sinus
tachy with HR 113. JOEL Hernandez updated at the bedside.
[2024-05-18] VITALS (15 sets, daily range): BP systolic 96–164; BP diastolic 58–143; BMI 24.7
[2024-05-18] MEDS: BENADRYL 25 MG IV ×4 (00:15→18:32)
--- NOTE | 2024-05-18 00:17 | W.PN.UPDATE ---
Update Note
Progress Note Update
New onset of fever 102.8, chest x-ray done admission time with No acute cardiopulmonary process. Will order covid, flu test, blood cultures and lactic acid.
[2024-05-18] MEDS: TYLENOL 650 MG PO ×3 (01:06→17:03)
[2024-05-18 01:38] LABS: COVID-19 Antigen Negative (Negative); Lactic Acid 3.2 mmol/L (0.7-2.0)
[2024-05-18 01:41] LABS: Troponin I < 0.012 ng/ml
--- NOTE | 2024-05-18 02:28 | PTCARENOTE ---
Addendum entered by Mary Castrejon RN 05/18/24 06:25:
FURNITURE REPAIRER made aware of flu,covid were negative.Lactic is 3.2 pt continued on IVF as ordered.FURNITURE REPAIRER ordered repeat lactic level on pt.Pt denies need to void,pt was bladder scan for 199cc. FURNITURE REPAIRER aware will continue to monitor pt.
Addendum entered by Mary Castrejon RN 05/18/24 02:35:
Pt temp 102.9 oral,HR-115-122. FURNITURE REPAIRER made aware. stat lactic,blood cultures,flu,covid send on pt.
Original Note:
Pt received from ICU as transfer in bed,pt aaox3 able to make her needs known,very lethargic,but easily arousable. Pt sinus tachy on monitor in 120-130's.Pt has tremors & was very anxious upon arrival to floor.Pt placed on bed alarm for safety.Pt
was provided with prn meds & emotional support provided as needed.ORCHID HAND accordion repairer was made aware of pt HR & pt continued to be monitored.Call solorio in reach.
--- NOTE | 2024-05-18 07:04 | W.PN.HOSP.TC ---
Addendum entered and electronically signed by Gary Powers MD 05/18/24 18:58:
I updated patient's daughter Margy and patient's brother Dr. Amrit Olivas about patient's positive blood cultures and the need for antibiotics in the form of Daptomycin.
Original Note:
Today's Communication/Plan
-
-Blood cultures, both sets, are positive -- discussed this with Dr. Jones of Infectious Diseases and ordered repeat blood cultures, plus Daptomycin 500 mg Q24H
-It is very important that the 2 sets of blood cultures are drawn 30 minutes apart, and also very important that the Daptomycin is started right AFTER both sets of the blood cultures are drawn.
-Given that patient needs dermatology and immunology to evaluate patient while hospitalized, I called [facility], and spoke to hospitalist Dr. Dewey Katz, as well as an
oil field roustabout/heart coordinator, both at [facility]; Dr. Dewey Katz accepted the patient as an emergent transfer
-If patient's condition worsens prior to actual transfer, need to call [facility] at [phone] to expedite transfer, as per hospitalist at [facility]
Assessment / Plan
Assessment / Plan
Physical Exam
General: Not in acute distress
HEENT: Normocephalic
Respiratory: CTAB
Cardiac: S1/S2. Tachycardia.
GI: Soft, Non Tender, Non Distended and Normal Bowel Sounds
Musculoskeletal: No Cyanosis and No Edema
Skin: Generalized erythematous, blanchable + pruritic rash
Neuro: AO x 3 and Nonfocal/grossly intact
Assessment/Plan
Patient is a 74y F with PMH significant for recent DRESS secondary to Lamictal who presented to ED for evaluation of increased itching, swallow dysfunction and SOB.
Presentation with diffuse/itchy rash, shortness of breath (shortness of breath now RESOLVED) and trouble swallowing
DRESS Syndrome
Peripheral Eosinophilia
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
- Initially admitted to ICU given airway concerns s/p epi administration x 3.
- Started Lamictal about 2 months ago, after titration, had rash around 04/22/24, was started on steroids, then hospitalized at [facility], given IV steroids and PO steroids were tapered
at that time -- was hospitalized for 17 days
- She was discharged from [facility] last week with a tapering prednisone dose, and was then taking Prednisone 30 mg daily. Symptoms gradually started since discharge.
- Status post IV Solu-Medrol 125 mg in the emergency room.
- Not hypoxic or short of breath at this time.
- No angioedema present at this time.
- LFTs and BUN/Cr are normal. However, reports of decreased urine output.
- Resumed high dose steroids (prednisone at 1mg/kg - 60 mg daily - for now).
- Continue prednisone 60 mg, very slow taper going forward
- Immunology evaluation after transfer to [facility] -- please see below
- Supportive care with wound care / topical therapies, IVFs, antipruritics, etc.
- Trial of gabapentin for intractable itching. Also hydroxyzine (patient's home medication)
Fever 102.9 F on 05/18/24
Lactic Acidosis
Gram Positive Bacteremia
-Suspected to be part of DRESS syndrome, but hepatic, renal and pulmonary functions are okay
-New onset of fever 102.8
-COVID and Flu tests negative
-Given that patient has DRESS Syndrome, and DRESS Syndrome can be caused by many different antibiotics, and the fact that patient is at an immunosuppressed state given high amounts of steroids
for the past ~1 month, consulted ID to see whether patient truly needs antibiotics, ID recommended no antibiotics at this time.
-Blood cultures are positive -- discussed this with Dr. Jones of Infectious Diseases and ordered repeat blood cultures, plus Daptomycin 500 mg Q24H
-Given that patient needs dermatology and immunology to evaluate patient while hospitalized, I called [facility], and spoke to hospitalist Dr. Dewey Katz, as well as an
oil field roustabout/heart coordinator, both at [facility]; Dr Dewey Katz accepted the patient as an emergent transfer to [facility]
-If patient's condition worsens prior to actual transfer, need to call [facility] at [phone] to expedite transfer, as per hospitalist at [facility]
Vaginal Discharge
- Infectious Disease requested consult to gynecology given patient's vaginal discharge to see whether she has mucosal involvement of DRESS
- No Vaginal mucosal involvement of the drug reaction and no vaginal infection as per gynecology
Asthma without Acute Exacerbation
Eczema
Family History of DRESS
- Patient with multiple 'atopic' diagnoses and interestingly family h/o DRESS in her brother (secondary to vancomycin).
Dysphagia
- EGD done at [facility] was unremarkable
- Continue PPI BID
Euvolemic Hyponatremia
Hypokalemia
- High urine osmoles suggest SIADH as the cause
- TSH is 1
- Na level is not significantly changed over the past month.
- PO fluid restriction
Non gap metabolic acidosis-likely due to normal saline
Microcytic anemia/thrombocytosis
Normocytic Anemia
- Unclear etiology of anemia but possibly associated with DRESS
- Heme test stools on high dose steroids.
- B12 (normal), etc.
- PPI BID while on high dose steroids.
Anxiety / Depression
- Continue sertraline. Avoid introducing any new agents.
- OK for Ativan PRN use.
Migraine headaches
Skin cancer-nonmelanoma
Hypercholesterolemia
DVT Prophylaxis: Subcut Heparin
Diet/Speech: Regular Solids/Thin Liquids
Code Status: Full Code
On May 18, 2024, I spoke to patient's daughter, and patient's daughter . All questions and concerns were answered to satisfaction.
Total time spent today on caring for patient, including speaking to patient's multiple several family members, speaking with physicians at [facility], seeing and examining the patient, and placing orders, was 100 minutes.
Anticipated Discharge: Today
Subjective/Interval History
-
Date of Service: May 18, 2024
Patient was seen and examined. Overnight, she developed fever, chills and tachycardia. Still with significant rash and throat discomfort.
Objective Data
-
Labs:
Laboratory Results
05/18/24
06:00
WBC Pending
Hgb Pending
Hct Pending
Plt Count Pending
Sodium Pending
Potassium Pending
Chloride Pending
Carbon Dioxide Pending
BUN Pending
Creatinine Pending
Glucose Pending
Calcium Pending
Total Bilirubin Pending
AST Pending
ALT Pending
Alkaline Phosphatase Pending
Vital Signs:
Vital Signs
Temp Pulse Resp BP Pulse Ox
99.7 F 124 16 111/69 98
05/18/24 02:58 05/18/24 02:58 05/18/24 02:58 05/18/24 02:58 05/18/24 02:58
I&O
05/17/24 05/18/24 05/19/24
06:59 06:59 06:59
Intake Total 1615 / 1615
Balance 1615 / 1615
[2024-05-18 07:59] LABS: Lactic Acid 3.5 mmol/L (0.7-2.0)
[2024-05-18 08:00] LABS: Hematocrit 32.7 % (37.0-47.0); Hemoglobin 10.9 g/dL (12.0-16.0); Mean Corp Hgb Conc. 33.3 g/dL (33.0-37.0); Mean Corpuscular Hgb 27.7 pg (27.0-31.0); Mean Platelet Volume 8.4 fL (7.4-10.4); Platelet Count 553 10^3/uL (130-400); Red Blood Cell Count 3.94 10^6/uL (4.20-5.40); Red Cell Dist. Width 17.1 % (11.5-14.5); White Blood Cell Count 12.8 10^3/uL (4.8-10.8)
[2024-05-18 08:12] LABS: Troponin I 0.013 ng/ml
[2024-05-18 08:23] LABS: ALT (SGPT) 22 U/L (0-35); AST (SGOT) 19 U/L (14-36); Albumin 2.8 g/dl (3.5-5.0); Alkaline Phosphatase 94 U/L (38-126); Blood Urea Nitrogen 11 mg/dl (7-17); Calcium 8.4 mg/dl (8.4-10.2); Carbon Dioxide 20 mmol/L (22-30); Chloride 105 mmol/L (98-107); Estimated Creatinine Clearance 64 ml/min; Glucose 82 mg/dl (70-99); Potassium 4.4 mmol/L (3.5-5.1); Sodium 134 mmol/L (135-145); Total Bilirubin 0.3 mg/dl (0.2-1.3); Total Protein 5.5 g/dl (6.3-8.2); eGFR > 60.00
[2024-05-18 08:35] LABS: Osmolality Serum 280 mOsm/kg (275-300)
[2024-05-18 08:50] LABS: Absolute Neutrophils -Man Diff 7.5 10^3/uL (1.4-6.5); Band Neutrophils 5 % (0-3); Eosinophils 25 % (0-6); Lymphocytes 12 % (20-51); Monocytes 1 % (2-9); Segmented Neutrophils 54 % (42-75)
[2024-05-18 08:51] LABS: Anisocytosis 1+; Atypical Lymphocytes 3 %; Hypochromasia 1+; Normal RBC Morphology No; Platelets Checked Yes
[2024-05-18 08:52] LABS: Acanthocytes Occasional; Ovalocytes 1+; Polychromasia Slight
[2024-05-18 08:53] LABS: Total Cells Counted 100
[2024-05-18] MEDS: ZOLOFT 100 MG PO (08:56)
[2024-05-18] MEDS: HEPARIN 5000 UNITS SC ×2 (08:56→20:39)
[2024-05-18] MEDS: DELTASONE 10 MG PO (08:56)
[2024-05-18] MEDS: ATARAX 25 MG PO ×3 (08:56→20:42)
[2024-05-18] MEDS: DELTASONE 50 MG PO (08:56)
[2024-05-18] MEDS: NEURONTIN 100 MG PO ×3 (08:56→20:42)
[2024-05-18] MEDS: PROTONIX 40 MG PO ×2 (08:56→20:39)
[2024-05-18] MEDS: LR 1000 IV ×2 (08:59→13:49)
[2024-05-18 09:12] LABS: Lipase 15 U/L (23-300)
--- NOTE | 2024-05-18 10:07 | CON.ID ---
Consultation
-
Date/Time Consultation Requested: May 18, 2024 0797
Date/Time Consultation Performed: May 18, 2024 1010
Requesting Provider: Dr. Gary Powers
Performing Provider: Dr. Radha Jones
Reason for Consultation: DRESS, does she need antibiotic for fever?
Chief Complaint / Past History
Chief Complaint
Rash, throat swelling
History of Present Illness
History obtained from the patient as well as from her at bedside. She is a 74-year-old female with history of asthma, eczema, depression, who was started on Lamictal beginning of April for depression. The Lamictal dose was then
increased and she developed pruritic rash and difficulty swallowing. Patient stopped taking the Lamictal without improvement. She presented to [facility] ER on April 21. CT of the neck unremarkable. Eosinophils was normal. She
received IV dexamethasone, Benadryl and famotidine. She was discharged to home. However her condition got significantly worse with full body rash, redness, pain, worsening dysphagia. She was admitted to [facility] on April 24
and was diagnosed with DRESS syndrome. She had significant absolute eosinophilia. She was febrile. Patient was placed on steroid with gradual improvement of her symptoms. She also underwent EGD which some inflammation with clear airways, per
. She was discharged to home on quick taper of steroid. At home, prednisone tapered down to 20 mg a day. Patient then developed worsening rash, pruritus. New Year's Teresa her throat started to close up again. called the ambulance.
She received epinephrine by EMS. She was brought to [place] [facility]. In ER she received Solu-Medrol 125 mg followed by prednisone 60 mg. Last night she spiked a temperature. Today patient reports that the throat swelling feels improved. In
addition the itching also has significantly improved. The rash is better. She denies cough or shortness of breath. She denies dysuria or flank pain. No urinary urgency. However her patient has been having odorous vaginal discharge for
the past month.
Past History
Additional Past Medical History:
Asthma
Eczema
Anxiety/depression
Migraine headaches
Allergy History:
lamotrigine [From Lamictal] Allergy (Severe, Verified 05/17/24 01:53)
Jo Dominic Sydrome
vancomycin Allergy (Severe, Verified 05/17/24 01:53)
Jo Dominic Sydrome
Medications Reviewed: Yes
Current Antibiotics:
none
Social History
Tobacco: Non-Smoker
Alcohol: Former
Personal:
Living: With Family
Family History
Family History: Not Pertinent
Review of Systems
Review of Systems
General: Chills and Change in Appetite
HEENT: Negative Stiff Neck, Sinus Problems, Headache or Pharyngitis
Cardiovascular: Negative Chest Pain or Dyspnea
Respiratory: Negative Dyspnea or Cough
Gasteroenterology: Negative Nausea, Vomiting or Diarrhea
Genital / Urological: Negative Dysuria, Hematuria or Flank Pain
Endocrine: Weakness
Skin / Hair / Nails: Rash and Pruritis
Neurological: Negative Headache or Dizziness
All systems: All other systems were reviewed and were negative
Vital Signs
Temp Pulse Resp BP Pulse Ox
99.7 F 137 24 130/67 91
05/18/24 08:55 05/18/24 07:05 05/18/24 07:05 05/18/24 07:05 05/18/24 07:05
Selected Entries
05/18/24
00:29 05/18/24
07:05
Temp 102.9 F H 101.6 F H
Physical Exam
Physical Exam
Constitutional: Comfortable
Head: Other (No frontal or max or sinus tenderness)
Eyes: No Conjunctival Hemorrhage and Sclera Anicteric
Pharynx: Benign
Oral: No Ulcers
Cardiovascular: Other (tachycardic)
Pulmonary: Clear
Gastrointestinal: Soft, Non Tender, Non Distended and Normal Bowel Sounds
Genito-Urinary: Negative CVA Tenderness
Extremities: Negative Edema
Skin: Rash (Maculopapular rash from head to lower extremities, more prominent on torso and forearms, + flaking dry skin through out)
Neurological: AO x 3; Negative Meningeal Signs
Lab / Diagnostic Study Results
05/18/24 07:33
05/18/24 07:33
Total Counted 100 05/18/24 07:33
Abs Neuts (Manual) 7.5 10^3/uL (1.4-6.5) H 05/18/24 07:33
Segmented Neutrophils 54 % (42-75) 05/18/24 07:33
Band Neutrophils 5 % (0-3) H D 05/18/24 07:33
Lymphocytes (Manual) 12 % (20-51) L 05/18/24 07:33
Eosinophils (Manual) 25 % (0-6) H 05/18/24 07:33
ESR 19 mm/hour (0-20) 05/17/24 02:22
PT 15.9 Sec (11.4-14.6) H 05/17/24 06:18
INR 1.22 05/17/24 06:18
Lactic Acid 3.5 mmol/L (0.7-2.0) H 05/18/24 07:33
C-Reactive Protein 43.50 mg/L (0.0-10.00) H 05/17/24 02:22
Microbiology Results
Micro:
05/18/24 02:10 Blood Culture - Pending
Blood/Venous
05/18/24 01:05 Influenza Types A & B (JAQUELIN) - Final
Nasal Swab Negative for Influenza A & B, NAAT
Negative results must be combined with clinical observations
and patient history.
Nucleic Acid Amplification test (NAAT)performed on the
[employer] platform.
05/18/24 01:05 Blood Culture - Pending
Blood/Venous
CXR: No acute cardiopulmonary process.
Assessment / Plan
# DRESS syndrome flare-up while on quick steroid taper
- DRESS from Lamictal, recent hospitalization at [facility] (04/24 to 05/09), dc'd on prednisone taper down to 20mg/d at home
- Pt with fever, eosinophilia, atypical lymphocytes, rash all consistent with DRESS.
Fortunately without liver, lung, and kidney involvement.
- I don't believe she has 'steroid failure' at this time.
It is not uncommon for DRESS flare-up during steroid taper especially when taper too quickly.
Her symptoms are improving with increase in prednisone dose. Recommend slow taper for 8 to 12 weeks.
- Fever is from DRESS.
- Leukocytosis due to steroid.
No indication for antibiotic at this time.
- Follow eosinophilia, fever.
# Vaginal discharge x 1 month.
- SQL SERVER DEVELOPER consult
Care Review
Plan reviewed with: Physician (Dr. Powers)
--- NOTE | 2024-05-18 10:23 | CM ---
Patient seen bedside with spouse in room.
patient with shaking, able able to answer questions.
Lives with spouse 2 story home with 2 steps to enter, 1 st floor set up (they do not use the second floor)
Has a RW at home and just recently using, normally does not use.
Patient was recently at [facility] and plan is for transfer to IMU today.
Patient current with [facility].
PCP: Dr Gilmar Valdez
Pharmacy: [facility].
Plan: TBD, probable return home with VN once medically stable.
[2024-05-18 11:10] LABS: Urine Albumin Trace (Neg - Trace); Urine Bilirubin 1+ (Negative); Urine Character Slightly Cloudy (Clear); Urine Color Yellow; Urine Glucose 1+ (Negative); Urine Ketone Negative (Negative); Urine Leukocyte 2+ (Negative); Urine Nitrite Negative (Negative); Urine Occult Blood Negative (Negative); Urine Urobilinogen Negative (Neg - 1+)
[2024-05-18 12:04] LABS: Osmolality Urine 818 mOsm/kg (300-900)
--- NOTE | 2024-05-18 12:12 | TRANSFER ---
pt Transferred to IMU, room 3348. pt's at the bedside updated. belongings sent with the pt. report given to JOEL Spann.
--- NOTE | 2024-05-18 12:20 | W.PN.PUL3 ---
Today's Communication / Plan
-
Continue some steroids with slow taper
Pain control
IVF with LR
Trend lactate
Trend serum bicarb level
Trend serum sodium
Antipyretics as needed
Awaiting transfer to tertiary care center
Pulmonary/intensive services will continue to follow along
Assessment
-
74-year-old woman with past medical history noted, recently discharged from [facility] after being treated for DRESS with steroids. Reports undergoing EGD that was unremarkable. Was on 30 mg of prednisone. She was discharged on 05/09/2024.
Progressively symptoms restarted. Developed shortness of breath and itchy throat. Came to the emergency room for evaluation. Also complaining of pruritus. Transferred to the critical care unit for airway monitoring. 05/17/2024
Impression:
Shortness of breath/possible airway compromise from drug reaction - SOB now resolved
Peripheral eosinophilia (25% on today's labs)
Lactic acidosis
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
? Dysphagia
Hyponatremia
Non gap metabolic acidosis
Microcytic anemia/thrombocytosis
Conditions present prior admission:
[facility] admission for 2 weeks discharge 05/09/2024- DRESS from Lamictal
On prednisone
Reports undergoing EGD that was unremarkable. Complaining of swallowing problems.
Asthma
Eczema
Anxiety/depression
Migraine headaches
Skin cancer-nonmelanoma
Hypercholesterolemia
-
Assessment and plan:
Patient was transferred to the critical care unit overnight from 05/16/2024 - 05/17/2024 for airway monitoring.
There was no evidence for airway edema or angioedema
No stridor on exam
Passed speech evaluation and diet has been advanced
Lung exam without bronchospasm
Not requiring oxygen supplementation
Hemodynamically stable
Normal renal function
Normal LFTs
Normal TSH
Chest x-ray without infiltrates or pneumonitis. Not bronchospastic on exam.
EKG 05/17/2024: Reviewed sinus tachycardia. Otherwise normal.
Benign abdominal exam.
Her lactate has been elevated since 05/18/2024 and is slowly increasing --> this needs to be trended until <2mmol/L
-
Troponin level has been negative x 2
-
Status post IV Solu-Medrol 125 mg in the emergency room.
Continue prednisone 60 mg, slow taper going forward over the next 3 months. Patient was at 30 mg and developed symptoms.
May need immunology evaluation in the outpatient setting.
Continue PPI twice a day
Continue hydroxyzine
Gabapentin started for pruritus
Continue prn nebulized albuterol - not currently bronchospastic on exam. Does not take any inhalers in the outpatient with history of asthma.
-
Trend sHCO3 level
Regular diet
Renal function is normal
Patient not hypotensive
-
Complains of difficulty/painful swallowing
Patient reports recent ?EGD at [facility] that was normal. Records been requested.
No evident angioedema on exam.
Diet advanced per speech.
She underwent CT of the neck 04/21/2024 in the emergency room at [facility]: Significant artifact, suggested right-sided tonsillitis
She has been complaining of this for the last 2 months.
-
Anemia noted: So far no evidence for GI bleed
Continue PPI
Follow H&H and transfuse as needed to keep Hb >7 g/dL
-
DVT prophylaxis: HSQ
Pulmonary service will continue to briefly follow along.
Total time spent today was 36 minutes for this encounter. Time includes reviewing laboratory test/imaging results, reviewing pertinent medical records, obtaining and reviewing medical history, performing an appropriate exam, ordering medications,
tests and procedures. Time also includes documentation of this encounter, coordinating patient care and communicating with other healthcare professionals. Total time does not include separately billed tests performed on this date of service.
Subjective Data
-
Date of Service:
Date of Service: May 18, 2024
Chief Complaint: Pulmonary Follow Up
Subjective:
We were asked to see this patient again today due to worsening lactic acidosis fevers this morning with rigors. Pt may have had slurred speech earlier, but that has resolved. Pt says that she has dry skin around her mouth and that's why she was
having difficulty speaking.
When I saw the patient she was resting in bed, and , Cedric, at bedside. Patient's daughter also was on the phone and I answered both of these family members questions. Patient says that she actually feels better right now, denies shortness
of breath or chest pain. Currently on room air saturating 100%, heart rate 104 and BP 120/65. Also denies FERNANDO, abdominal pain, nausea, fevers or chills.
Review of Systems
General: Other (Negative unless mentioned above)
Objective Data
Data Reviewed
Vital Signs / I&O / Oxygen:
Vital Signs
Temp Pulse Resp BP Pulse Ox
98.8 F 120 18 129/77 92
05/18/24 11:49 05/18/24 11:49 05/18/24 11:49 05/18/24 11:49 05/18/24 11:49
Intake and Output
05/17/24 05/18/24 05/19/24
06:59 06:59 06:59
Intake Total 1615 / 1615 240 / 240
Output Total 200 / 200
Balance 1615 / 1615 40 / 40
SaO2 92
Physical Exam
General: Respiratory Distress (negative), Comfortable, Chills (negative) and Sweats (negative)
HEENT: Normocephalic and Anicteric
Cardiovascular: S1-S2, Peripheral Edema (negative) and Other (Tachycardic)
Respiratory: Clear, Wheeze (negative), Crackles (negative), Rhonchi (negative), Non-Labored Respirations and Stridor (negative)
GI: Soft, Non Distended, Non Tender and Normal Bowel Sounds
Neurology: AO x 3 and Tremors (negative)
Skin: Warm, Dry, Cyanosis (negative), Jaundice (negative) and Rash (Generalized erythematous, blanchable + pruritic rash)
Labs/Micro/Reports
Lab Data
05/18/24 07:33
05/18/24 07:33
Microbiology
05/18/24 01:05 Nasal Swab Influenza Types A & B (JAQUELIN) - Final
Negative for Influenza A & B, NAAT
Negative results must be combined with clinical observations
and patient history.
Nucleic Acid Amplification test (NAAT)performed on the
[employer] or [employer] platform.
[2024-05-18 12:42] LABS: Urine Mucus Many; Urine Squamous Cell >30 /LPF (Few)
[2024-05-18 12:43] LABS: Urine Amorphous Seen
[2024-05-18 12:44] LABS: Urine Red Blood Cell 0-2 /HPF (0-2)
[2024-05-18 12:45] LABS: Urine Bacteria Many (Negative); Urine White Cell 30-40 /HPF (0-5)
[2024-05-18] MEDS: HYDROPHOR 1 APPLIC TOPICAL (13:48)
--- NOTE | 2024-05-18 14:54 | CS.OBGYN ---
Consult Summary - APPAREL SALES ASSOCIATE
-
Pt seen and examined. Brake Engineer exam completed. No Cxs were taken- not needed
Pt has a resolving rash from a drug reaction that affected her face/ trunk/ arms/ legs and also involved her vulvar area. No Vaginal mucosal involvement of the drug reaction and no vaginal infection.
The increased vaginal discharge is just secondary to the resolving rash and resolving edema of her vulvar area. This is self limited and will improve when the rash and edema is completely gone.
Pt to follow up with me as an outpt as needed.
--- NOTE | 2024-05-18 14:58 | PTCARENOTE ---
Patient received via stretcher to room 3348 due to DRESS complications. Patients stating that she was feeling better upon arrival, vital signs stable. Patient was washed and Benedryl, lotion applied. Patient ate lunch. at bedside. Patient is
now for transfer to [facility].
[2024-05-18 16:04] LABS: Urine Sodium 118 mmol/L (30-90)
[2024-05-18] MEDS: ATIVAN 0.5 MG PO (17:03)
--- NOTE | 2024-05-18 17:19 | CM ---
Room air. Receiving IVF, IV Benadryl prn.
Notified by Dr Powers plan is transfer to [facility], [facility], accepted by Dr. Dewey Katz at [facility]. Patient will need ALS ambulance for transport.
Per Irish, corrections unit supervisor, transfer forms and ambulance forms completed by Dr Powers.
Plan transfer to [facility] when bed is available.
[2024-05-18 17:44] LABS: Lactic Acid 3.3 mmol/L (0.7-2.0)
[2024-05-18 17:54] LABS: Troponin I < 0.012 ng/ml
--- NOTE | 2024-05-18 17:56 | PTCARENOTE ---
Addendum entered by Maria Ines Garcia RN 05/18/24 19:37:
New orders for blood cultures and IV antibiotics obtained. Endorsed to next shift registered nurse. Doctors specific instructions discussed and report completed at bedside with family.
Original Note:
Discussed positive blood culture results with Dr. Powers and Dr. Jones. No new orders obtained.
[2024-05-18 20:11] LABS: Lactic Acid 3.8 mmol/L (0.7-2.0)
[2024-05-18] MEDS: MUCINEX PO (20:42)
[2024-05-18] MEDS: CUBICIN 10 MG IV (20:56)
[2024-05-19] VITALS (40 sets, daily range): BP systolic 75–154; BP diastolic 31–130; PULSE 109; O2SAT 99; BMI 27.3
[2024-05-19 00:34] LABS: Glucose - Point of Care 50 mg/dl (70-99)
[2024-05-19] MEDS: TYLENOL 650 MG PO ×5 (00:35→21:22)
[2024-05-19] MEDS: DEXTROSE 50% SYRINGE 12.5 GRAMS IV ×2 (00:44→05:44)
[2024-05-19 00:48] LABS: Glucose - Point of Care 48 mg/dl (70-99)
[2024-05-19 01:02] LABS: Glucose - Point of Care 112 mg/dl (70-99)
--- NOTE | 2024-05-19 01:34 | W.PN.UPDATE ---
Update Note
Progress Note Update
Called to patient room due to significant change in condition including 90/75, tremors with T 101.9 and bedside glucose of 50 then 48. 1/2 amp D50 then 112. Midline placed by IV team. Ice packs applied cooling blanket ordered. Awaiting lab resullts.
No worsening of erythema all over. She is able to answer questions and is responding to painful stimuli appropriately.
[2024-05-19] MEDS: ATIVAN 0.5 MG PO ×2 (01:35→19:58)
[2024-05-19] MEDS: BENADRYL 25 MG IV ×4 (01:35→21:16)
[2024-05-19 01:39] LABS: Hematocrit 28.9 % (37.0-47.0); Hemoglobin 9.2 g/dL (12.0-16.0); Mean Corp Hgb Conc. 31.8 g/dL (33.0-37.0); Mean Corpuscular Hgb 27.4 pg (27.0-31.0); Mean Platelet Volume 8.6 fL (7.4-10.4); Platelet Count 455 10^3/uL (130-400); Red Blood Cell Count 3.36 10^6/uL (4.20-5.40); Red Cell Dist. Width 17.2 % (11.5-14.5)
[2024-05-19 01:46] LABS: ALT (SGPT) 22 U/L (0-35); AST (SGOT) 21 U/L (14-36); Albumin 2.2 g/dl (3.5-5.0); Alkaline Phosphatase 76 U/L (38-126); Blood Urea Nitrogen 15 mg/dl (7-17); Calcium 7.9 mg/dl (8.4-10.2); Carbon Dioxide 21 mmol/L (22-30); Chloride 102 mmol/L (98-107); Estimated Creatinine Clearance 64 ml/min; Glucose 154 mg/dl (70-99); Magnesium 1.5 mg/dl (1.6-2.3); Phosphorus 2.4 mg/dl (2.5-4.5); Potassium 3.7 mmol/L (3.5-5.1); Sodium 130 mmol/L (135-145); Total Bilirubin 0.2 mg/dl (0.2-1.3); Total Protein 4.5 g/dl (6.3-8.2); eGFR > 60.00
--- NOTE | 2024-05-19 01:50 | PTCARENOTE ---
Received patient from previous RN. Patient has full body rash due to DRESS. Patient became diaphoretic, developed rigors, had a temp of 101.9. PRN meds given, see MAR. HAMILTON at bedside, orders placed. IV placed Midline in right arm. Patient's
daughter at bedside. Care on going, continuing to monitor. call solorio in reach
[2024-05-19 02:16] LABS: Absolute Neutrophils -Man Diff 4.7 10^3/uL (1.4-6.5); Band Neutrophils 16 % (0-3); Lactic Acid 3.6 mmol/L (0.7-2.0); Lymphocytes 20 % (20-51); Segmented Neutrophils 18 % (42-75)
[2024-05-19 02:17] LABS: Anisocytosis 1+; Atypical Lymphocytes 3 %; Eosinophils 40 % (0-6); Monocytes 3 % (2-9); Normal RBC Morphology No; Platelets Checked Yes; Total Cells Counted 100
[2024-05-19 02:21] LABS: Ovalocytes 1+
[2024-05-19 02:23] LABS: Polychromasia Occasional
[2024-05-19 02:24] LABS: Acanthocytes Occasional
[2024-05-19 03:10] LABS: Glucose - Point of Care 85 mg/dl (70-99)
[2024-05-19] MEDS: MAGNESIUM SULFATE 50 IV (03:15)
[2024-05-19] MEDS: LR 1000 IV ×3 (03:22→09:00)
[2024-05-19 05:22] LABS: Glucose - Point of Care 71 mg/dl (70-99)
[2024-05-19 05:45] LABS: Glucose - Point of Care 66 mg/dl (70-99)
[2024-05-19 06:16] LABS: Glucose - Point of Care 138 mg/dl (70-99)
--- NOTE | 2024-05-19 07:58 | PTCARENOTE ---
Assumed care of patient this AM. Notified Dr. Powers of event overnight. Patient rectal temperature 100.9 rectally. BS ordered Q2hrs. Daughter in room at bedside.
[2024-05-19 08:18] LABS: Glucose - Point of Care 115 mg/dl (70-99)
[2024-05-19] MEDS: LR IV (08:18)
--- NOTE | 2024-05-19 08:19 | W.PN.HOSP.TC ---
Addendum entered and electronically signed by Gary Powers MD 05/19/24 08:46:
Switch Prednisone to IV Solumedrol 60 mg daily as PO intake unreliable right now.
Original Note:
Today's Communication/Plan
-
Overnight, condition declined with hypotension, fever, tachycardia
IV fluid bolus
Levophed
Changed IV fluids to D5 LR
Transfer to ICU
Assessment / Plan
Assessment / Plan
Physical Exam
General: Mild distress due to rash and chills
HEENT: Normocephalic
Respiratory: CTAB
Cardiac: S1/S2. Tachycardia.
GI: Soft, Non Tender, Non Distended and Normal Bowel Sounds
Musculoskeletal: No Cyanosis and No Edema
Skin: Generalized erythematous, blanchable + pruritic rash
Neuro: AO x 3 and Nonfocal/grossly intact
Assessment/Plan
Patient is a 74 y/o female with PMH significant for recent DRESS secondary to Lamictal who presented to ED for evaluation of increased itching, swallow dysfunction and SOB.
Presentation with diffuse/itchy rash, shortness of breath (shortness of breath now RESOLVED) and trouble swallowing
DRESS Syndrome
Peripheral Eosinophilia
History of DRESS from Lamictal -- recent 17-day admission at [facility] discharged on prednisone
- Started Lamictal about 2 months ago, after titration, had rash around 04/22/24, was started on steroids, then hospitalized at [facility], given IV steroids and PO steroids were tapered
at that time -- was hospitalized for 17 days
- She was discharged from [facility] last week with a tapering prednisone dose, and was then taking Prednisone 30 mg daily. Symptoms gradually started since discharge.
- Status post IV Solu-Medrol 125 mg in the emergency room.
- LFTs and BUN/Cr are normal.
- Continue high dose steroids (prednisone at 1mg/kg - 60 mg daily - for now) --> if cannot take PO, then will have to switch to intravenous steroids -- very slow taper going forward
- Immunology evaluation after transfer to [facility] -- please see below
- Supportive care with wound care / topical therapies, IVFs, antipruritics, etc.
- Trial of gabapentin for intractable itching. Also hydroxyzine (patient's home medication)
Fever 102.9 F on 05/18/24
Lactic Acidosis
Gram Positive (In Clusters) Bacteremia
Immunosuppressed State from DRESS Syndrome and Steroids
Worsening Leukocytosis
-Initially admitted to ICU given airway concerns s/p epi administration x 3, was doing better, was on tele, then transferred to IMU due to decline
-Suspected to be part of DRESS syndrome, but hepatic, renal function is okay
-New onset of fever 102.8 on 05/18/24, continues to have fevers
-COVID and Flu tests negative
-Blood cultures are positive -- discussed this with Dr. Jones of Infectious Diseases and ordered repeat blood cultures, plus Daptomycin 500 mg Q24H
-Given that patient needs dermatology and immunology to evaluate patient while hospitalized, I called [facility], and spoke to hospitalist Dr. Dewey Katz, as well as an
ripsaw matcher/magnetic testing technician, both at [facility]; Dr Dewey Katz accepted the patient as an emergent transfer to [facility]
-Patient's condition worsened on 05/19/24 morning with fevers, hypotension, hypoglycemia --> ordered IV fluid bolus, Levophed, X-Ray, Echo, transfer to ICU
-I called [facility] ([phone]) again on 05/19/24 to expedite transfer, but they said that now the data integrity analyst has to call the [facility] data integrity analyst for transfer
Hypoglycemia
-Dextrose given overnight 05/19, will changed IV fluids to D5 LR from LR
-Continue to monitor accuchecks, adjust IV fluids to maintain normal to hyperglycemia (in the 140 to 180 range)
Hypomagnesemia
-Replacement ordered
Vaginal Discharge
- Infectious Disease requested consult to gynecology given patient's vaginal discharge to see whether she has mucosal involvement of DRESS
- No Vaginal mucosal involvement of the drug reaction and no vaginal infection as per gynecology
Asthma without Acute Exacerbation
Eczema
Family History of DRESS
- Patient with multiple 'atopic' diagnoses and interestingly family h/o DRESS in her brother (secondary to vancomycin).
Dysphagia
- EGD done at [place] was unremarkable
- Continue PPI BID
Hyponatremia - STABLE
Hypokalemia
- High urine osmoles suggest SIADH as the cause
- TSH is 1
- Na level is not significantly changed over the past month.
- PO fluid restriction
Non gap metabolic acidosis-likely due to normal saline
Microcytic anemia/thrombocytosis
Normocytic Anemia
- Unclear etiology of anemia but possibly associated with DRESS
- Heme test stools on high dose steroids.
- B12 (normal), etc.
- PPI BID while on high dose steroids.
Anxiety / Depression
- Continue sertraline. Avoid introducing any new agents.
- OK for Ativan PRN use.
Migraine headaches
Skin cancer-nonmelanoma
Hypercholesterolemia
DVT Prophylaxis: Subcut Heparin
Diet/Speech: Regular Solids/Thin Liquids
Code Status: Full Code
On May 18, 2024, I spoke to patient's daughter, and patient's daughter . All questions and concerns were answered to satisfaction.
Shock and hypoglycemia needing transfer to the Intensive Care Unit is a high risk encounter.
Anticipated Discharge: > 48 hours
Subjective/Interval History
-
Date of Service: May 19, 2024
Patient was seen and examined. This morning she was not doing well, fevers overnight and also hypoglycemia.
Objective Data
-
Labs:
Laboratory Results
05/19/24
01:21
WBC 14.0 H
Hgb 9.2 L
Hct 28.9 L
Plt Count 455 H
Sodium 130 L
Potassium 3.7
Chloride 102
Carbon Dioxide 21 L
BUN 15
Creatinine 0.6
Glucose 154 H
Calcium 7.9 L
Total Bilirubin 0.2
AST 21
ALT 22
Alkaline Phosphatase 76
Vital Signs:
Vital Signs
Temp Pulse Resp BP Pulse Ox
100.9 F H 121 22 95/56 98
05/19/24 07:52 05/19/24 07:45 05/19/24 07:45 05/19/24 07:00 05/19/24 07:52
I&O
05/18/24 05/19/24 05/20/24
06:59 06:59 06:59
Intake Total 1615 / 1615 1939
Output Total 200 / 200
Balance 1615 / 1615 1739 174
--- NOTE | 2024-05-19 08:45 | PTCARENOTE ---
Dr. Powers to room. Orders obtained. Patient will be transferred to ICU rm. 3361. Currently IV team in room to place PICC. Portable CXR obtained. LR bolus currently infusing via right 24g hand INT. Last BP 87/53(66). BS 115. Patient AA0
X3. Red rash over entire body. Patient warm to touch but she is shivering, last rectal temperature 100.9.
--- NOTE | 2024-05-19 08:56 | W.PN.ID1 ---
Addendum entered and electronically signed by Radha Jones MD 05/19/24 14:19:
Blood cx's + Staph aureus (MSSA).
DC Daptomycin.
Start cefazolin 2g IV q8h.
Repeat blood cx's in am.
Ordered TTE.
PICC placed today in setting of S. aureus bacteremia. When stable, will dc PICC.
Updated and her physician brother at bedside.
Original Note:
Date of Service
Date of Service: May 19, 2024
Today's Communication
See below.
Assessment / Plan
# GPC bacteremia. 2 sets of blood cx's drawn 1 hour apart.
# Suspect septic shock over anaphylaxis from abx
- Bacteremia from skin source with diffuse rash/ sloughing skin
- Repeat blood cx's x2 before abx pending
- S/p Daptomycin 500mg IV x 1 at 1999 last night.
(Pt and family refused Vancomycin due to brother with h/o DRESS from IV Vanco).
- Check CK
- Awaiting identification of GPC in blood, then adjust antibiotic.
- OK to place PICC for pressor.
- In transit to ICU.
- Monitor closely.
# DRESS syndrome flare-up while on quick steroid taper
- DRESS from Lamictal, recent hospitalization at [facility] (04/24 to 05/09), dc'd on prednisone taper down to 20mg/d at home
- Pt with fever, eosinophilia, atypical lymphocytes, rash all consistent with DRESS.
Fortunately without liver, lung, and kidney involvement at this time
- Not uncommon for DRESS flare-up during steroid taper especially when taper too quickly.
- Pruritic rash, dysphagia improved on prednisone 60 mg.
- Eosinophilia trending up from 25% -> 40% (5600)
- Recommend increase steroid dose
- Trend eosinophils, CBC.
- Follow clinically.
# Vaginal discharge x 1 month.
- Appreciate JOURNEYMAN PIPE FITTER eval. Drainage from rash involving vulva. No mucosal involvement. No infection.
# Additional Past Medical History:
Asthma
Eczema
Anxiety/depression
Migraine headaches
Chief Complaint
-: Fever and Bacteremia
Subjective / Review of Systems
Events last evening noted. Bcx's x 2 drawn separately + GPC clusters. Repeat bcx's x 2 drawn followed by 1 dose of Daptomycin IV around 1999. Midnight, spiked temp 101.9 with shaking chills. Gluose 48. Pt now hypotensive. SBP 70's - 90's.
Transfering to ICU while awaiting bed availability at [facility]. Pt reports no worsening rash/itching or SOB. Mouth feels dry.
Vital Signs / Physical Exam
Vital Signs
Vital Signs
Temp Pulse Resp BP Pulse Ox
100.9 F H 121 22 95/56 98
05/19/24 07:52 05/19/24 07:45 05/19/24 07:45 05/19/24 07:00 05/19/24 07:52
Physical Exam
Constitutional: Acutely Ill
Eyes: Sclera Anicteric; Negative No Conjunctival Hemorrhage or Ocular Discharge
Oropharyngeal: Negative Ulcers
Cardiovascular: S1/S2 and Other (Tachycardic)
Pulmonary: Clear
Gastrointestinal: Soft, Non Tender, Non Distended and Normal Bowel Sounds
Genito-Urinary: Negative CVA Tenderness
Extremities: Negative Edema
Skin: Rash (whole body erythema with dry flaking skin - stable)
Neurological: AO x 3
Objective Data
Lab Data
Lab Results
05/19/24 01:21
05/19/24 01:21
ESR 19 mm/hour (0-20) 05/17/24 02:22
PT 15.9 Sec (11.4-14.6) H 05/17/24 06:18
INR 1.22 05/17/24 06:18
APTT 26.7 Sec (23.4-35.0) 05/17/24 06:18
Estimated Creat Clear 64 ml/min 05/19/24 01:21
Lactic Acid 3.6 mmol/L (0.7-2.0) H 05/19/24 01:21
Total Bilirubin 0.2 mg/dl (0.2-1.3) 05/19/24 01:21
AST 21 U/L (14-36) 05/19/24 01:21
ALT 22 U/L (0-35) 05/19/24 01:21
Alkaline Phosphatase 76 U/L (38-126) 05/19/24 01:21
C-Reactive Protein 43.50 mg/L (0.0-10.00) H 05/17/24 02:22
Most recent labs reviewed.
Micro Results:
05/18/24 02:10 Blood Culture - Preliminary
Blood/Venous Positive culture in progress
Gram Stain - Final
05/18/24 01:05 Blood Culture - Preliminary
Blood/Venous Positive culture in progress
Gram Stain - Final
05/18/24 20:35 Blood Culture - Pending
Blood/Venous
05/18/24 19:51 Blood Culture - Pending
Blood/Venous
05/18/24 01:05 Influenza Types A & B (JAQUELIN) - Final
Nasal Swab Negative for Influenza A & B, NAAT
Negative results must be combined with clinical observations
and patient history.
Nucleic Acid Amplification test (NAAT)performed on the
[employer] platform.
05/17/24 CXR: No acute cardiopulmonary process.
05/19/24 CXR: No evidence of active cardiopulmonary disease.
Care Review
Plan reviewed with: Physician (Dr. Powers)
--- NOTE | 2024-05-19 09:06 | PTCARENOTE ---
Report given to Sangeeta MALDONADO. Patient transferred to ICU. Family updated.
[2024-05-19] MEDS: SOLU-MEDROL PF 60 MG IV (09:49)
--- NOTE | 2024-05-19 09:51 | VATNOTE ---
PICC in good position with tip in the SVC per radiology report. PCN notified of same. Instructed to change all IV tubing and remove the IV in patient's R hand per protocol.
[2024-05-19] MEDS: PROTONIX 40 MG PO ×2 (09:53→19:27)
[2024-05-19] MEDS: DELTASONE PO ×2 (09:54→09:55)
[2024-05-19] MEDS: HEPARIN 5000 UNITS SC ×2 (09:54→19:27)
[2024-05-19] MEDS: NEURONTIN 100 MG PO ×3 (09:54→21:16)
[2024-05-19] MEDS: ZOLOFT 100 MG PO (09:55)
[2024-05-19] MEDS: MUCINEX PO ×3 (09:56→19:59)
--- NOTE | 2024-05-19 10:00 | PTCARENOTE ---
Transfer from IMU . VSs on Ra
[2024-05-19] MEDS: ATARAX 25 MG PO ×3 (10:14→21:16)
[2024-05-19 11:03] LABS: Glucose - Point of Care 115 mg/dl (70-99)
[2024-05-19] MEDS: D5LR 1000 IV ×2 (11:03→21:30)
[2024-05-19 11:12] LABS: Lactic Acid 2.1 mmol/L (0.7-2.0)
--- NOTE | 2024-05-19 12:09 | PN.CDI ---
CDI
- -
CDI:
Physician Documentation Request
Admit Date: 05/17/24 05:22
Dear Doctor Gio,
Please review the following and provide your response in the progress notes.
Clinical Indicators:
Pt admitted with DRESS syndrome.
1/2 Registered Dietitian Note: 'Consult decreased appetite with weight loss...Reported 10lb, significant 7.8% weight loss over 1 month.
Pt meets ASPEN criteria for severe protein calorie malnutrition of chronic illness with >5% wt loss x 1 month, prolonged poor intake prior to hospital admit <75% for >1month.'
Based on the above information and your assessment, which of the following most accurately represents the patient's nutritional status?
Severe Protein calorie Malnutrition
Other (please specify)
[place] Criteria (ACP Hospitalist 2017)
2 or more criteria must be present for either
non severe or severe malnutrition
Note that the criteria differs related to the
presence of an acute or chronic illness
Chronic Illness
Energy Intake Non Severe: <75% for >1 month
Severe: <75% for >1 month
Weight Loss Non Severe: 5% over 1 month
7.5% over 3 months
10% over 6 months
20% over 1 year
Severe: >5% over 1 month
>7.5% over 3 months
>10% over 6 months
>20% over 1 year
Additional criteria that can be used to Determine if Mild or Moderate Malnutrition (Merck Manual 2018)
Use of terms such as suspected, likely, concern for, or probable (associated with a specific diagnosis that is being evaluated, monitored, or treated as if it exists) are acceptable and can be coded in the inpatient setting, when documented at the
time of discharge.
Thank you,
Brittny Euceda RN, BSN
CDI Specialist
Available via [place] [employer]
Please use your independent medical judgment in providing your response.
[2024-05-19 12:46] LABS: Glucose - Point of Care 120 mg/dl (70-99)
--- NOTE | 2024-05-19 12:54 | PTCARENOTE ---
0700 assumed care. pt in bed . on 5L via nasal canula oxygen / B/L UE soft restrains in place . LR 80/hr Heparin 900/9ml Next PTT 08:45
AAO x3 Forgetful. Axiety noted Bed alarm activated . Restraints taking off
SR 80's 1st degree block BP stable
Abdomen soft non -tender Diet changed
Indwelling Hawk draining naa clear urine .
skin intact dark blue bruises noted on pt's arms, legs and back pt states bruises from recent falls
Peripheral lines RT and left flushed
--- NOTE | 2024-05-19 13:07 | PTCARENOTE ---
patient transfer to chair with supervision using walker. On 5L via nasal canula LR D/C Heparin infusing via Rt peripheral line at 600/6 mL Next PTT 1800 chair alarm activated call solorio within reach. Rocephin order for UTI
--- NOTE | 2024-05-19 14:16 | W.PN.PUL3 ---
Today's Communication / Plan
-
Continue IV fluids
No vasopressors required
Antibiotics adjusted for MSSA coverage
Follow renal function
Continue steroids for rash and pruritus
Will continue ICU monitoring for today
Assessment
-
74-year-old woman with past medical history noted, recently discharged from [facility] after being treated for DRESS with steroids. Reports undergoing EGD that was unremarkable. Was on 30 mg of prednisone. She was discharged on 05/09/2024.
Progressively symptoms restarted. Developed shortness of breath and itchy throat. Came to the emergency room for evaluation. Also complaining of pruritus. Transferred to the critical care unit for airway monitoring. 05/17/2024
Impression:
Shortness of breath/possible airway compromise from drug reaction - SOB now resolved
Peripheral eosinophilia (25% on today's labs)
Lactic acidosis
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
? Dysphagia
Hyponatremia
Non gap metabolic acidosis
Microcytic anemia/thrombocytosis
Conditions present prior admission:
[facility] admission for 2 weeks discharge 05/09/2024- DRESS from Lamictal
On prednisone
Reports undergoing EGD that was unremarkable. Complaining of swallowing problems.
Asthma
Eczema
Anxiety/depression
Migraine headaches
Skin cancer-nonmelanoma
Hypercholesterolemia
-
Assessment and plan:
Patient was transferred to the critical care unit overnight from 05/16/2024 - 05/17/2024 for airway monitoring.
-
Back to the critical care unit 05/19/2024 due to fever,Leukocytosis, hypotension-initially unresponsive to fluid bolus.
Levophed started but briefly, blood pressure stabilized
Staph aureus bacteremia noted-discussed with infectious disease it is MSSA.
Daptomycin discontinued
Cefazolin started
Continue hemodynamic monitoring for 24 hours.
Lactic acid trending lower
If stable hemodynamically patient will be transferred out of the ICU
-
Currently:
No evidence for airway edema or angioedema.
No stridor on exam
Passed speech evaluation and diet has been advanced
Lung exam without bronchospasm
Not requiring oxygen supplementation
Hemodynamically stable
Normal renal function
Normal LFTs
Normal TSH
Chest x-ray without infiltrates or pneumonitis. Not bronchospastic on exam.
EKG 05/17/2024: sinus tachycardia. Otherwise normal.
Benign abdominal exam.
Her lactate has been elevated since 05/18/2024 and is slowly increasing --> this needs to be trended until <2mmol/L
-
Troponin level has been negative multiple times. Denies any chest pain.
-
Status post IV Solu-Medrol 125 mg in the emergency room.
Defer steroids to primary team. Currently on IV Solu-Medrol.
May need immunology evaluation in the outpatient setting vs inpatient if does not improve
Continue PPI twice a day
Continue hydroxyzine
Gabapentin started for pruritus
Continue prn nebulized albuterol - not currently bronchospastic on exam. Does not take any inhalers in the outpatient with history of asthma.
-
Nongap metabolic acidosis.
Trend sHCO3 level
Regular diet
Renal function is normal
-
Complains of difficulty/painful swallowing
Patient reports recent ?EGD at [facility] that was normal. Records been requested.
No evident angioedema on exam.
Diet advanced per speech.
She underwent CT of the neck 04/21/2024 in the emergency room at [facility]: Significant artifact, suggested right-sided tonsillitis
She has been complaining of this for the last 2 months.
-
Anemia noted: So far no evidence for GI bleed
Continue PPI
Follow H&H and transfuse as needed to keep Hb >7 g/dL
-
DVT prophylaxis: HSQ
Pulmonary service will continue to briefly follow along.
Primary team considering transfer to [facility] for dermatology and immunology evaluation, will complete therapy for bacteremia first.
Critical care statement: A total of 32 minutes of critical care time was provided for this patient today. This includes management of unstable vital signs, evaluation of the patient at bedside, reviewing the patient's pertinent medical records
including ventilator settings, arterial blood gases, radiographs, microbiology, laboratory evaluations and discussion with primary team, critical care nursing, and respiratory therapy.
Subjective Data
-
Date of Service:
Date of Service: May 19, 2024
Chief Complaint: Pulmonary Follow Up
Subjective:
Events from overnight noted
Febrile, tachycardic, hypotensive, positive blood cultures. Transferred to the critical care unit for possible pressors
Continues to complain of pruritus
Objective Data
Data Reviewed
Vital Signs / I&O / Oxygen:
Vital Signs
Temp Pulse Resp BP Pulse Ox
99.5 F 121 22 95/56 98
05/19/24 12:25 05/19/24 07:45 05/19/24 07:45 05/19/24 07:00 05/19/24 07:52
Intake and Output
05/18/24 05/19/24 05/20/24
06:59 06:59 06:59
Intake Total 1615 / 1615 1940 / 1940
Output Total 200 / 200
Balance 1615 / 1615 1740 / 1740
SaO2 98
Physical Exam
General: Respiratory Distress ( mild at rest), Chills (negative) and Sweats (negative)
HEENT: Normocephalic and Anicteric
Cardiovascular: S1-S2, Peripheral Edema (negative) and Other (Tachycardic)
Respiratory: Clear, Wheeze (negative), Crackles (negative), Rhonchi (negative), Non-Labored Respirations and Stridor (negative)
GI: Soft, Non Distended, Non Tender and Normal Bowel Sounds
Neurology: AO x 3 and Tremors (negative)
Skin: Warm, Dry, Cyanosis (negative), Jaundice (negative) and Rash (Generalized erythematous, blanchable + pruritic rash)
Labs/Micro/Reports
Lab Data
05/19/24 01:21
05/19/24 01:21
Microbiology
05/18/24 19:51 Blood/Venous Blood Culture - Preliminary
Positive culture in progress
05/18/24 19:51 Blood/Venous Gram Stain - Preliminary
05/18/24 01:05 Blood/Venous Blood Culture - Preliminary
Staphylococcus aureus
05/18/24 01:05 Blood/Venous Gram Stain - Final
05/18/24 02:10 Blood/Venous Blood Culture - Preliminary
Staphylococcus aureus
05/18/24 02:10 Blood/Venous Gram Stain - Final
05/18/24 01:05 Nasal Swab Influenza Types A & B (JAQUELIN) - Final
Negative for Influenza A & B, NAAT
Negative results must be combined with clinical observations
and patient history.
Nucleic Acid Amplification test (NAAT)performed on the
[employer] platform.
--- NOTE | 2024-05-19 15:54 | PTCARENOTE ---
VSS ECHO done results pending . bladder scanned for 500 cc. pt transfer to bedside commode one person assist , requires walker . RA VSS
--- NOTE | 2024-05-19 16:10 | PTOTSP ---
Speech Language Pathology
Pt now transferred to ICU. Require new MINING ENGINEER orders to continue to follow.
[2024-05-19] MEDS: HYDROPHOR 1 APPLIC TOPICAL ×2 (16:52→20:00)
[2024-05-19] MEDS: ANCEF 10 IV (16:53)
[2024-05-19 17:19] LABS: Glucose - Point of Care 165 mg/dl (70-99)
[2024-05-19 18:44] LABS: Creatine Phosphokinase 64 U/L (30-135)
--- NOTE | 2024-05-19 20:57 | PTCARENOTE ---
Handoff report received from off going RN. Patient received in bed AAOx4 and able to make her needs known. Patient verbalized feeling anxious and asked for PRN Ativan. Plan of care for the shift and scheduled medications discussed with the patient.
Pt has tremors and is itching her skin throughout. Skin is red, warm, dry, flakey, and scaly. Sinus rhythm to sinus tachy on the monitor with HR fluctuating between 99-105 bpm. Trace edema throughout. Clear breath sounds. SpO2 at 97% on room air.
+BS. abdomen is round. Patient cleansed with CHG wipes and wash cloth.Hair shampooed, detangled and placed in a bun. Pt brushed her teeth. Linens changed. D5LR at 100 ml/hr. Scheduled medications and Ativan administered. Safety measures maintained.
Aayush in the lowest position. Call solorio and personal belongings are within reach. Pt's S/O at the bedside.
[2024-05-19 21:03] LABS: Glucose - Point of Care 171 mg/dl (70-99)
[2024-05-19 21:48] LABS: Lactic Acid 2.9 mmol/L (0.7-2.0)
[2024-05-19 21:51] LABS: Blood Urea Nitrogen 15 mg/dl (7-17); Calcium 7.4 mg/dl (8.4-10.2); Carbon Dioxide 24 mmol/L (22-30); Chloride 101 mmol/L (98-107); Estimated Creatinine Clearance 73 ml/min; Glucose 143 mg/dl (70-99); Potassium 3.6 mmol/L (3.5-5.1); Sodium 131 mmol/L (135-145); eGFR > 60.00
[2024-05-19] MEDS: KCL 50 IV (22:14)
[2024-05-19] MEDS: CALCIUM GLUCONATE 100 IV (22:36)
--- NOTE | 2024-05-19 23:54 | PTCARENOTE ---
2214: KCL 20 meq IV rider for potassium of 3.6, and calcium gluconate 2 gram for calcium 7.4 administered.
[2024-05-20] VITALS (24 sets, daily range): BP systolic 106–138; BP diastolic 54–101; BMI 27.5
[2024-05-20] MEDS: ANCEF 10 IV ×4 (00:05→23:45)
--- NOTE | 2024-05-20 00:13 | PTCARENOTE ---
Reassessed patient. sinus tachy on the monitor with HR 110. RR 28. Pt's verbalizes trying to 'get some sleep.' Afebrile. no changes from previous assessment. safety measures maintained.
--- NOTE | 2024-05-20 01:56 | PTCARENOTE ---
Janie from [facility] transfer center updated. Per Janie, please update transfer center [phone] if the patient will not be transferred.
[2024-05-20 02:48] LABS: Glucose - Point of Care 84 mg/dl (70-99)
[2024-05-20 03:27] LABS: Lactic Acid 1.9 mmol/L (0.7-2.0)
[2024-05-20 03:46] LABS: ALT (SGPT) 18 U/L (0-35); AST (SGOT) 20 U/L (14-36); Albumin 1.9 g/dl (3.5-5.0); Alkaline Phosphatase 79 U/L (38-126); Blood Urea Nitrogen 15 mg/dl (7-17); Calcium 7.8 mg/dl (8.4-10.2); Carbon Dioxide 26 mmol/L (22-30); Chloride 104 mmol/L (98-107); Estimated Creatinine Clearance 73 ml/min; Glucose 95 mg/dl (70-99); Magnesium 1.9 mg/dl (1.6-2.3); Phosphorus 2.7 mg/dl (2.5-4.5); Potassium 3.8 mmol/L (3.5-5.1); Sodium 134 mmol/L (135-145); Total Bilirubin 0.1 mg/dl (0.2-1.3); Total Protein 4.1 g/dl (6.3-8.2); eGFR > 60.00
[2024-05-20 03:58] LABS: Hematocrit 27.1 % (37.0-47.0); Hemoglobin 9.1 g/dL (12.0-16.0); Mean Corp Hgb Conc. 33.6 g/dL (33.0-37.0); Mean Corpuscular Hgb 27.7 pg (27.0-31.0); Mean Corpuscular Volume 82.4 fL (81.0-99.0); Mean Platelet Volume 8.7 fL (7.4-10.4); Platelet Count 373 10^3/uL (130-400); Red Blood Cell Count 3.29 10^6/uL (4.20-5.40); Red Cell Dist. Width 16.7 % (11.5-14.5); White Blood Cell Count 14.5 10^3/uL (4.8-10.8)
[2024-05-20] MEDS: TYLENOL 650 MG PO (05:26)
[2024-05-20] MEDS: ATIVAN 0.5 MG PO ×3 (05:26→20:17)
[2024-05-20] MEDS: BENADRYL 25 MG IV ×3 (05:26→21:37)
[2024-05-20 05:36] LABS: Absolute Neutrophils -Man Diff 2.9 10^3/uL (1.4-6.5); Band Neutrophils 10 % (0-3); Lymphocytes 26 % (20-51); Segmented Neutrophils 10 % (42-75)
[2024-05-20 05:37] LABS: Atypical Lymphocytes 6 %; Monocytes 1 % (2-9)
[2024-05-20 05:38] LABS: Eosinophils 47 % (0-6)
[2024-05-20 05:39] LABS: Anisocytosis 1+; Normal RBC Morphology No; Platelets Checked Yes
[2024-05-20 05:40] LABS: Burr Cells 1+; Ovalocytes 1+; Polychromasia Slight; Total Cells Counted 100
[2024-05-20 06:43] LABS: Glucose - Point of Care 73 mg/dl (70-99)
[2024-05-20] MEDS: D5LR 1000 IV ×2 (07:01→16:12)
--- NOTE | 2024-05-20 08:00 | PTCARENOTE ---
Assumed care of patient. Pt rec'd drowsy...A&Ox3. Pleasant. Denies any pain at present. BUTLER's but weak. S1 S2 reg w/ sinus tach on monitor. Weak PP. Trace generalized edema. On R/A...sats 96%. Lungs clear. Occasional dry NPC. Abdomen soft
and nontender...+BS. No void this am...will monitor w/ bladder scanning. Skin red, itchy, scaly...covers entire body. For possible transfer to [facility] once bed available. Right DL PICC w/ D5LR infusing. VS documented. Call solorio within reach.
updated. Will continue to monitor.
--- NOTE | 2024-05-20 08:50 | W.PN.ID1 ---
Date of Service
Date of Service: May 20, 2024
Today's Communication
See below
Assessment / Plan
# MSSA bacteremia (4 sets bcx prior to abx)
# Severe sepsis
- Bacteremia from skin source with diffuse rash/ sloughing skin
- Fever resolving. Leukocytosis stable. Elevated lactic acidosis resolved.
- Repeat blood cx's x2 (on abx) pending.
- TTE no gross vegetation
- Continue cefazolin 2g IV q8h (d2)
- Picc placed 1/3 in setting of bacteremia. When bcx neg, dc PICC and place new PICC.
- Trend temps/wbc.
# DRESS syndrome flare-up while on quick steroid taper
[facility] hospitalization at [facility] (04/24 to 05/09), dc'd on prednisone taper down to 20mg/d at home
- Pt with fever, eosinophilia, atypical lymphocytes, rash all consistent with DRESS.
Fortunately without liver, lung, and kidney involvement at this time
- Not uncommon for DRESS flare-up during steroid taper especially when taper too quickly.
- Pruritic rash, dysphagia improved on prednisone 60 mg.
- Eosinophilia trending up from 25% -> 40% -> 47%
- Continue methylprednisolone Will need long taper.
- Trend eosinophils
- Supportive care. Add cetirizine to hydroxyzine for pruritus. Moisturize dry skin with Aquaphor.
- Follow clinically.
# Vaginal discharge x 1 month.
- Appreciate ELEMENT SETTER eval. Drainage from rash involving vulva. No mucosal involvement. No infection.
# Additional Past Medical History:
Asthma
Eczema
Anxiety/depression
Migraine headaches
Chief Complaint
-: Fever and Bacteremia
Subjective / Review of Systems
+ sweats last night.
Continues to have itching
Vital Signs / Physical Exam
Vital Signs
Vital Signs
Temp Pulse Resp BP Pulse Ox
98.9 F 114 24 130/64 93
05/20/24 07:24 05/20/24 07:30 05/20/24 07:30 05/20/24 07:00 05/20/24 07:30
Physical Exam
Constitutional: Acutely Ill
Eyes: Negative No Conjunctival Hemorrhage, Sclera Anicteric, Erythema or Ocular Discharge
Oropharyngeal: Benign
Cardiovascular: Other (tachycardic)
Pulmonary: Clear
Gastrointestinal: Soft, Non Tender, Non Distended and Normal Bowel Sounds
Genito-Urinary: Negative CVA Tenderness
Extremities: Edema (Upper and lower extremities)
Skin: Rash (blanching erythroderma full body light decreased. Peeling dry skin on face )
Neurological: AO x 3
Lines: PICC (RUE)
Objective Data
Lab Data
Lab Results
05/20/24 03:01
05/20/24 03:01
ESR 19 mm/hour (0-20) 05/17/24 02:22
PT 15.9 Sec (11.4-14.6) H 05/17/24 06:18
INR 1.22 05/17/24 06:18
APTT 26.7 Sec (23.4-35.0) 05/17/24 06:18
Estimated Creat Clear 73 ml/min 05/20/24 03:01
Lactic Acid 1.9 mmol/L (0.7-2.0) 05/20/24 03:01
Total Bilirubin 0.1 mg/dl (0.2-1.3) L 05/20/24 03:01
AST 20 U/L (14-36) 05/20/24 03:01
ALT 18 U/L (0-35) 05/20/24 03:01
Alkaline Phosphatase 79 U/L (38-126) 05/20/24 03:01
C-Reactive Protein 43.50 mg/L (0.0-10.00) H 05/17/24 02:22
Most recent labs reviewed.
Micro Results:
05/18/24 02:10 Blood Culture - Preliminary
Blood/Venous S aureus-Methicillin Sensitive
Gram Stain - Final
05/18/24 01:05 Blood Culture - Preliminary
Blood/Venous S aureus-Methicillin Sensitive
Gram Stain - Final
05/20/24 05:12 Blood Culture - Pending
Blood/Venous
05/18/24 20:35 Blood Culture - Preliminary
Blood/Venous Positive culture in progress
Gram Stain - Preliminary
05/18/24 19:51 Blood Culture - Preliminary
Blood/Venous Positive culture in progress
Gram Stain - Preliminary
05/18/24 01:05 Influenza Types A & B (JAQUELIN) - Final
Nasal Swab Negative for Influenza A & B, NAAT
Negative results must be combined with clinical observations
and patient history.
Nucleic Acid Amplification test (NAAT)performed on the
[employer] platform.
05/17/24 CXR: No acute cardiopulmonary process.
05/19/24 CXR: No evidence of active cardiopulmonary disease.
Care Review
Plan reviewed with: Physician (Dr. Dos Santos)
[2024-05-20] MEDS: MUCINEX PO ×2 (08:58→20:01)
[2024-05-20] MEDS: ZOLOFT 100 MG PO (09:03)
[2024-05-20] MEDS: PROTONIX 40 MG PO ×2 (09:03→19:48)
[2024-05-20] MEDS: NEURONTIN 100 MG PO ×3 (09:03→21:37)
[2024-05-20] MEDS: ATARAX 25 MG PO ×3 (09:03→21:37)
[2024-05-20] MEDS: SOLU-MEDROL PF 60 MG IV (09:09)
[2024-05-20] MEDS: HEPARIN 5000 UNITS SC ×2 (09:14→19:48)
[2024-05-20] MEDS: HYDROPHOR TOPICAL (09:15)
--- NOTE | 2024-05-20 09:18 | W.PN.INTV ---
Today's Communication / Plan
Recommendations
Continue antibiotic
Steroids per primary team
Follow cultures
Will transfer out of critical care today.
Sign off
Assessment
-
74-year-old woman with past medical history noted, recently discharged from [facility] after being treated for DRESS with steroids. Reports undergoing EGD that was unremarkable. Was on 30 mg of prednisone. She was discharged on 05/09/2024.
Progressively symptoms restarted. Developed shortness of breath and itchy throat. Came to the emergency room for evaluation. Also complaining of pruritus. Transferred to the critical care unit for airway monitoring. 05/17/2024
Back to the critical care unit 07/17/2024 for hypotension and fever-MSSA bacteremia
Impression:
MSSA bacteremia-sepsis
Hypotension responded to IV fluids-no vasopressors required
Shortness of breath/possible airway compromise from drug reaction - SOB now resolved
Peripheral eosinophilia (25% on today's labs)
Lactic acidosis
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
? Dysphagia
Hyponatremia
Non gap metabolic acidosis
Microcytic anemia/thrombocytosis
Conditions present prior admission:
[facility] admission for 2 weeks discharge 05/09/2024- DRESS from Lamictal
On prednisone
Reports undergoing EGD that was unremarkable. Complaining of swallowing problems.
Asthma
Eczema
Anxiety/depression
Migraine headaches
Skin cancer-nonmelanoma
Hypercholesterolemia
-
Assessment and plan:
Patient was transferred to the critical care unit overnight from 05/16/2024 - 05/17/2024 for airway monitoring.
-
Back to the critical care unit 05/19/2024 due to fever,Leukocytosis, hypotension-initially unresponsive to fluid bolus.
Hemodynamically stable overnight-no vasopressor requirement. 05/20/2024
Staph aureus bacteremia noted-MSSA.
Cefazolin started
Continue hemodynamic monitoring for 24 hours.
Lactic acid has cleared
We will transfer out of the critical care unit today.
-
Currently: Continues to report pruritus.
No evidence for airway edema or angioedema. 05/20/2024
No stridor on exam
Passed speech evaluation and diet has been advanced
Lung exam without bronchospasm
Not requiring oxygen supplementation
Normal renal function
Normal LFTs
Normal TSH
Chest x-ray 05/19/2024 without infiltrates or pneumonitis. Not bronchospastic on exam. PICC line in place.
EKG 05/17/2024: sinus tachycardia. Otherwise normal.
Benign abdominal exam.
Lactic acid has cleared
-
Troponin level has been negative multiple times. Denies any chest pain.
-
Status post IV Solu-Medrol 125 mg in the emergency room.
Defer steroids to primary team. Currently on IV Solu-Medrol 60 mg.
Persistent peripheral eosinophilia
May need immunology evaluation in the outpatient setting vs inpatient if does not improve
Continue PPI twice a day
Continue hydroxyzine
Gabapentin started for pruritus
Continue prn nebulized albuterol - not currently bronchospastic on exam. Does not take any inhalers in the outpatient with history of asthma.
-
Nongap metabolic acidosis. Resolved
-
Complains of difficulty/painful swallowing
Patient reports recent ?EGD at [facility] that was normal. Records been requested.
No evident angioedema on exam.
Diet advanced per speech.
She underwent CT of the neck 04/21/2024 in the emergency room at [facility]: Significant artifact, suggested right-sided tonsillitis
She has been complaining of this for the last 2 months.
-
Anemia noted: So far no evidence for GI bleed
Continue PPI
Follow H&H and transfuse as needed to keep Hb >7 g/dL
-
DVT prophylaxis: HSQ
Primary team considering transfer to [facility] for dermatology and immunology evaluation steroids refractory DRESS, will complete therapy for bacteremia first.
No additional critical care recommendations
Critical care team will sign off.
Please call pulmonary if any respiratory issues arise
Subjective Dataa
Subjective Data
Date of Service:
Date of Service: May 20, 2024
Chief Complaint: Public Health Aide Follow Up (Sepsis-bacteremia/DRESS)
Subjective:
No overnight events
Not on vasopressors
Hemodynamically stable
Continues to report itchiness
Denies shortness of breath or wheezing
Review of Systems
General: Fever (n)
Cardiopulmonary: Dyspnea (n) and Dyspnea on Exertion (n)
Objective Data
Data Reviewed
Vital Signs / I&O / Oxygen:
Vital Signs
Temp Pulse Resp BP Pulse Ox
98.9 F 114 24 130/64 93
05/20/24 07:24 05/20/24 07:30 05/20/24 07:30 05/20/24 07:00 05/20/24 07:30
Intake and Output
05/19/24 05/20/24 05/21/24
06:59 06:59 06:59
Intake Total 1939 / 0 1819 / 1819
Output Total 200 / 200
Balance 1740 / 1740 1820 / 1820
SaO2 93
Physical Exam
General: Comfortable
HEENT: Normocephalic and Other (No stridor on exam -voice is clear)
Cardiovascular: S1-S2
Respiratory: Non-Labored Respirations
GI: Soft and Non Distended
Neurology: Awake, Alert and AO x 3
Skin: Rash (Generalized, scaling, scratch tijerina, erythema)
Labs/Micro/Reports
Lab Data
05/20/24 03:01
05/20/24 03:01
Microbiology
05/18/24 19:51 Blood/Venous Blood Culture - Preliminary
S aureus-Methicillin Sensitive
05/18/24 19:51 Blood/Venous Gram Stain - Preliminary
05/18/24 20:35 Blood/Venous Blood Culture - Preliminary
S aureus-Methicillin Sensitive
05/18/24 20:35 Blood/Venous Gram Stain - Preliminary
05/18/24 02:10 Blood/Venous Blood Culture - Preliminary
S aureus-Methicillin Sensitive
05/18/24 02:10 Blood/Venous Gram Stain - Final
05/18/24 01:05 Blood/Venous Blood Culture - Preliminary
S aureus-Methicillin Sensitive
05/18/24 01:05 Blood/Venous Gram Stain - Final
05/18/24 01:05 Nasal Swab Influenza Types A & B (JAQUELIN) - Final
Negative for Influenza A & B, NAAT
Negative results must be combined with clinical observations
and patient history.
Nucleic Acid Amplification test (NAAT)performed on the
[employer] platform.
[2024-05-20 10:32] LABS: Glucose - Point of Care 119 mg/dl (70-99)
[2024-05-20] MEDS: ZYRTEC 10 MG PO (10:55)
--- NOTE | 2024-05-20 11:23 | W.PN.HOSP.TC ---
Today's Communication/Plan
-
Continue antibiotics, follow repeat blood cultures, continue steroids
Transfer to IMU
Patient continues to await a bed to [facility]
Assessment / Plan
Assessment / Plan
Physical Exam
General: Mild distress due to rash and chills
HEENT: Normocephalic
Respiratory: CTAB
Cardiac: S1/S2. Tachycardia.
GI: Soft, Non Tender, Non Distended and Normal Bowel Sounds
Musculoskeletal: No Cyanosis and No Edema
Skin: Generalized erythematous, blanchable + pruritic rash
Neuro: AO x 3 and Nonfocal/grossly intact
Assessment/Plan
Patient is a 74 y/o female with PMH significant for recent DRESS secondary to Lamictal who presented to ED for evaluation of increased itching, swallow dysfunction and SOB.
Presentation with diffuse/itchy rash, shortness of breath (shortness of breath now RESOLVED) and trouble swallowing
DRESS Syndrome
Peripheral Eosinophilia
History of DRESS from Lamictal -- recent 17-day admission at [facility] discharged on prednisone
- Started Lamictal about 2 months ago, after titration, had rash around 04/22/24, was started on steroids, then hospitalized at [facility], given IV steroids and PO steroids were tapered
at that time -- was hospitalized for 17 days
- She was discharged from [facility] last week with a tapering prednisone dose, and was then taking Prednisone 30 mg daily. Symptoms relapsed after discharge.
- LFTs and BUN/Cr are normal.
- Continue high dose steroids with Solumedrol very slow taper going forward
- Immunology evaluation after transfer to [facility] -- please see below
- Supportive care with wound care / topical therapies, IVFs, antipruritics, etc.
- Hydroxyzine, Cetirizine, Aquaphor moisturizer and Gabapentin for relief from itching.
Fever 102.9 F on 05/18/24
Severe Sepsis
Septic Shock
Lactic Acidosis - RESOLVED
MSSA Bacteremia, suspected from skin
Immunosuppressed State from DRESS Syndrome and Steroids
Worsening Leukocytosis
-Initially admitted to ICU given airway concerns s/p epi administration x 3, was in tele --> declined --> back to IMU --> hypotensive w/ SBP in the 70s --> IV fluids and ICU (no vasopressors
needed) --> more stable now to go back to IMU
-Suspected to be part of DRESS syndrome, but hepatic, renal function is okay
-New onset of fever 102.8 on 05/18/24, continues to have fevers
-TTE with no vegetation
-Continue cefazolin 2g IV q8h (d2). Status post Daptomycin.
-Picc placed 1/3 in setting of bacteremia. When bcx neg, dc PICC and place new PICC.
-Given that patient needs dermatology and immunology to evaluate patient while hospitalized, I called [facility], and spoke to hospitalist Dr. Dewey Katz, as well as an
rn ostomy/assistant elementary teacher, both at [facility]; Dr Dewey Katz accepted the patient as an emergent transfer to [facility]
-Patient's condition worsened on 05/19/24 morning with fevers, hypotension, hypoglycemia --> ordered IV fluid bolus, Levophed, X-Ray, Echo, transfer to ICU
-I called [facility] ([phone]) again on 05/20/24 regarding the status of patient's transfer, I spoke to hospitalist Dr. Shivam Kaur, who confirmed [facility], I explained patient's rash to him, he
and the immigration coordinator said the resource room special education teacher at [facility] will call me back
Hypoglycemia - RESOLVED
-Continue Dextrose-containing IV fluids
-Continue to monitor accuchecks, adjust IV fluids to maintain normal to hyperglycemia (in the 140 to 180 range)
Hypomagnesemia
-Replacement ordered
Vaginal Discharge
- Infectious Disease requested consult to gynecology given patient's vaginal discharge to see whether she has mucosal involvement of DRESS
- No Vaginal mucosal involvement of the drug reaction and no vaginal infection as per gynecology
Asthma without Acute Exacerbation
Eczema
Family History of DRESS
- Patient with multiple 'atopic' diagnoses and interestingly family h/o DRESS in her brother (secondary to vancomycin).
Dysphagia
- EGD done at [place] was unremarkable
- Continue PPI BID
Hyponatremia - STABLE
Hypokalemia
- High urine osmoles suggest SIADH as the cause
- TSH is 1
- Na level is not significantly changed over the past month.
- PO fluid restriction
Non gap metabolic acidosis-likely due to normal saline
Microcytic anemia/thrombocytosis
Normocytic Anemia
- Unclear etiology of anemia but possibly associated with DRESS
- Heme test stools on high dose steroids.
- B12 (normal), etc.
- PPI BID while on high dose steroids.
Anxiety / Depression
- Continue sertraline. Avoid introducing any new agents.
- OK for Ativan PRN use.
Migraine headaches
Skin cancer-nonmelanoma
Hypercholesterolemia
Severe Protein Calorie Malnutrition
DVT Prophylaxis: Subcut Heparin
Diet/Speech: Regular Solids/Thin Liquids
Code Status: Full Code
On May 18, 2024, I spoke to patient's daughter, and patient's daughter . All questions and concerns were answered to satisfaction.
Bacteremia and DRESS Syndrome is a high-risk encounter.
Anticipated Discharge: > 48 hours
Subjective/Interval History
-
Date of Service: May 20, 2024
Patient was seen and examined. She reported feeling a bit better today, still with chills and significant skin erythema and itching.
Objective Data
-
Labs:
Laboratory Results
05/20/24
03:01
WBC 14.5 H
Hgb 9.1 L
Hct 27.1 L
Plt Count 373
Sodium 134 L
Potassium 3.8
Chloride 104
Carbon Dioxide 26
BUN 15
Creatinine 0.5 L
Glucose 95
Calcium 7.8 L
Total Bilirubin 0.1 L
AST 20
ALT 18
Alkaline Phosphatase 79
Vital Signs:
Vital Signs
Temp Pulse Resp BP Pulse Ox
98.9 F 114 24 130/64 93
05/20/24 07:24 05/20/24 07:30 05/20/24 07:30 05/20/24 07:00 05/20/24 07:30
I&O
05/19/24 05/20/24 05/21/24
06:59 06:59 06:59
Intake Total 1939
Output Total 200 / 200
Balance 1739
--- NOTE | 2024-05-20 12:00 | PTCARENOTE ---
PRN ativan and benadryl given per pt request...see MAR. No major changes in physical assessment. No void yet...will continue to monitor closely. Pt resting comfortably at present. Call solorio within reach.
--- NOTE | 2024-05-20 16:00 | PTCARENOTE ---
Pt able to void on BSC....350mls naa urine. Pt slept for approximately 3hrs. Pt self removed PICC line. VAT made aware. Two fresh INT's inserted and pediatric blood culture sent. Tx to IMU when bed available. No major changes in physical
assessment. Call solorio within reach.
[2024-05-20 17:48] LABS: Glucose - Point of Care 175 mg/dl (70-99)
[2024-05-20] MEDS: HYDROPHOR 1 APPLIC TOPICAL (19:49)
--- NOTE | 2024-05-20 20:25 | PTCARENOTE ---
Patient received in bed AAOx3 and able to make her needs known. Verbalizes feeling anxious and asked for prn Ativan. Plan of care for the shift reviewed with the patient and her spouse. Questions answered regarding abx dosing and frequency. Pt's
tremulous. Pt believed that her Ancef was for 5x/day. Sinus tachy on the monitor. Pt is diaphoretic. Cleansed with CHG wipes. Occasional cough with clear sputum. SpO2 at 95% on room.abdomen is round with +BS. Pt ate 45% of her dinner tray. Is
drinking her ensure supplement. Denies need to void and mouth care. Bed sheet and pad changed. Safety measures maintained. Bed in the lowest position. Call solorio and personal belongings are within reach. Pt's spouse remains at the bedside.
[2024-05-20 21:46] LABS: Glucose - Point of Care 176 mg/dl (70-99)
[2024-05-21] VITALS (9 sets, daily range): BP systolic 102–146; BP diastolic 56–95; BMI 28.0
--- NOTE | 2024-05-21 01:31 | PTCARENOTE ---
Assumed care of pt, physical assessment as documented. LR D5 infusing at 100mL/hr. PRN benadryl - see MAR.
[2024-05-21] MEDS: BENADRYL 25 MG IV ×3 (01:37→22:58)
[2024-05-21] MEDS: D5LR 1000 IV (02:49)
[2024-05-21 04:13] LABS: Hematocrit 26.2 % (37.0-47.0); Hemoglobin 8.5 g/dL (12.0-16.0); Mean Corp Hgb Conc. 32.4 g/dL (33.0-37.0); Mean Corpuscular Hgb 27.3 pg (27.0-31.0); Mean Corpuscular Volume 84.2 fL (81.0-99.0); Mean Platelet Volume 9.2 fL (7.4-10.4); Platelet Count 344 10^3/uL (130-400); Red Blood Cell Count 3.11 10^6/uL (4.20-5.40); White Blood Cell Count 17.6 10^3/uL (4.8-10.8)
[2024-05-21 04:31] LABS: ALT (SGPT) 12 U/L (0-35); AST (SGOT) 21 U/L (14-36); Albumin 2.2 g/dl (3.5-5.0); Alkaline Phosphatase 96 U/L (38-126); Blood Urea Nitrogen 14 mg/dl (7-17); Calcium 7.7 mg/dl (8.4-10.2); Carbon Dioxide 26 mmol/L (22-30); Chloride 103 mmol/L (98-107); Estimated Creatinine Clearance 74 ml/min; Glucose 100 mg/dl (70-99); Magnesium 1.8 mg/dl (1.6-2.3); Potassium 3.9 mmol/L (3.5-5.1); Sodium 135 mmol/L (135-145); Total Bilirubin 0.2 mg/dl (0.2-1.3); Total Protein 4.7 g/dl (6.3-8.2); eGFR > 60.00
--- NOTE | 2024-05-21 04:52 | PTCARENOTE ---
Patient assessed. no changes. labs drawn and sent. The patient repositions herself.
[2024-05-21 06:30] LABS: Glucose - Point of Care 99 mg/dl (70-99)
[2024-05-21 07:33] LABS: Absolute Neutrophils -Man Diff 5.8 10^3/uL (1.4-6.5); Band Neutrophils 9 % (0-3); Segmented Neutrophils 24 % (42-75)
[2024-05-21 07:34] LABS: Atypical Lymphocytes 4 %; Eosinophils 20 % (0-6); Lymphocytes 38 % (20-51); Monocytes 3 % (2-9); Myelocytes 2 % (-)
[2024-05-21 07:35] LABS: Anisocytosis 1+; Normal RBC Morphology No; Platelets Checked Yes
[2024-05-21] MEDS: ANCEF 10 IV ×3 (07:35→22:59)
[2024-05-21 07:36] LABS: Hypochromasia 1+; Ovalocytes 1+; Total Cells Counted 100
[2024-05-21] MEDS: HYDROPHOR 1 APPLIC TOPICAL ×2 (09:27→20:33)
[2024-05-21] MEDS: SOLU-MEDROL PF 60 MG IV (09:30)
--- NOTE | 2024-05-21 09:30 | PTCARENOTE ---
Assumed care of patient. Pt rec'd drowsy and sleeping...A&Ox3. Pleasant. Denies any pain at present. BUTLER's but weak. S1 S2 reg w/ sinus tach on monitor. Weak PP. Trace generalized edema. On R/A...sats 96%. Lungs clear. Occasional dry NPC.
Abdomen soft and nontender...+BS. No urge to void at present. Skin red, itchy, scaly...covers entire body. For possible transfer to [facility] once bed available. RFA INT w/ D5LR infusing. VS documented. Regular diet...able to take pills whole
without issue. Call solorio within reach. updated. Will continue to monitor.
Initialized on 05/20/24 12:23 - END OF NOTE
[2024-05-21] MEDS: HEPARIN 5000 UNITS SC ×2 (09:31→20:33)
[2024-05-21] MEDS: PROTONIX 40 MG PO ×2 (09:33→20:32)
[2024-05-21] MEDS: NEURONTIN 100 MG PO ×3 (09:33→21:06)
[2024-05-21] MEDS: ZOLOFT 100 MG PO (09:33)
[2024-05-21] MEDS: ZYRTEC 10 MG PO (09:34)
[2024-05-21] MEDS: MUCINEX PO (09:37)
[2024-05-21] MEDS: ATARAX 25 MG PO ×3 (09:38→21:06)
--- NOTE | 2024-05-21 09:50 | W.PN.ID1 ---
Date of Service
Date of Service: May 21, 2024
Today's Communication
Continue cefazolin.
Assessment / Plan
# MSSA bacteremia (4 sets bcx prior to abx)
# Severe sepsis - improving
- Bacteremia from skin source with diffuse rash/ sloughing skin
- Fever resolved.
- Leukocytosis trended up due to steroid
- Repeat blood cx's x2 (on abx) neg to date.
- TTE no gross vegetation
- Continue cefazolin 2g IV q8h (d3)
- Picc placed 1/3 in setting of bacteremia. Pt pulled PICC out 05/20.
No PICC until bacteremia cleared.
# DRESS syndrome flare-up while on quick steroid taper
- DRESS from Lamictal, recent hospitalization at [facility] (04/24 to 05/09), dc'd on prednisone taper down to 20mg/d at home
- Pt with fever, eosinophilia, atypical lymphocytes, rash all consistent with DRESS.
Fortunately without liver, lung, and kidney involvement at this time
- Not uncommon for DRESS flare-up during steroid taper especially when taper too quickly.
- Pruritic rash, dysphagia improved on prednisone 60 mg.
- Eosinophilia trending down from 25% -> 40% -> 47% ->20%
- Continue methylprednisolone Will need long slow taper over 8 to 12 weeks.
- Trend eosinophils
- Supportive care.
# Vaginal discharge x 1 month.
- Appreciate BILL CHECKER eval. Drainage from rash involving vulva. No mucosal involvement. No infection.
# Additional Past Medical History:
Asthma
Eczema
Anxiety/depression
Migraine headaches
Chief Complaint
-: Fever and Bacteremia
Subjective / Review of Systems
Resting comfortably.
Vital Signs / Physical Exam
Vital Signs
Vital Signs
Temp Pulse Resp BP Pulse Ox
97.9 F 119 22 140/84 97
05/20/24 20:20 05/21/24 01:00 05/21/24 01:00 05/21/24 00:00 05/21/24 01:00
Physical Exam
Constitutional: No Acute Distress and Comfortable
Eyes: Negative No Conjunctival Hemorrhage, Sclera Anicteric, Erythema or Ocular Discharge
Oropharyngeal: Benign
Cardiovascular: Other (tachycardic)
Pulmonary: Clear
Gastrointestinal: Soft, Non Tender, Non Distended and Normal Bowel Sounds
Genito-Urinary: Negative CVA Tenderness
Extremities: Edema (Upper and lower extremities)
Skin: Rash (blanching erythroderma full body light decreased. Peeling dry skin on face )
Neurological: AO x 3
Objective Data
Lab Data
Lab Results
05/21/24 03:28
05/21/24 03:28
ESR 19 mm/hour (0-20) 05/17/24 02:22
PT 15.9 Sec (11.4-14.6) H 05/17/24 06:18
INR 1.22 05/17/24 06:18
APTT 26.7 Sec (23.4-35.0) 05/17/24 06:18
Estimated Creat Clear 74 ml/min 05/21/24 03:28
Lactic Acid 1.9 mmol/L (0.7-2.0) 05/20/24 03:01
Total Bilirubin 0.2 mg/dl (0.2-1.3) 05/21/24 03:28
AST 21 U/L (14-36) 05/21/24 03:28
ALT 12 U/L (0-35) 05/21/24 03:28
Alkaline Phosphatase 96 U/L (38-126) 05/21/24 03:28
C-Reactive Protein 43.50 mg/L (0.0-10.00) H 05/17/24 02:22
Most recent labs reviewed.
Micro Results:
05/18/24 02:10 Blood Culture - Final
Blood/Venous S aureus-Methicillin Sensitive
Gram Stain - Final
05/18/24 19:51 Blood Culture - Final
Blood/Venous S aureus-Methicillin Sensitive
Gram Stain - Final
05/18/24 20:35 Blood Culture - Final
Blood/Venous S aureus-Methicillin Sensitive
Gram Stain - Final
05/20/24 16:02 Blood Culture - Pending
Blood/Venous
05/20/24 05:12 Blood Culture - Preliminary
Blood/Venous No Growth in 24 hours- Final report to follow
05/21/24 03:28 Blood Culture - Pending
Blood/Venous
05/18/24 01:05 Blood Culture - Final
Blood/Venous S aureus-Methicillin Sensitive
Gram Stain - Final
05/18/24 01:05 Influenza Types A & B (JAQUELIN) - Final
Nasal Swab Negative for Influenza A & B, NAAT
Negative results must be combined with clinical observations
and patient history.
Nucleic Acid Amplification test (NAAT)performed on the
[employer] platform.
05/17/24 CXR: No acute cardiopulmonary process.
05/19/24 CXR: No evidence of active cardiopulmonary disease.
--- NOTE | 2024-05-21 11:00 | PTCARENOTE ---
OOB to BSC w/ assist x2. Pt able to void 275mls of naa odiferous urine. CHG bath done. PT at bedside...pt able to ambulate w/ rolling walker and assist x 2 to chair. See PT note. Pt currently eating breakfast while sitting in chair.
[2024-05-21 13:02] LABS: Glucose - Point of Care 177 mg/dl (70-99)
--- NOTE | 2024-05-21 16:18 | W.PN.HOSP.TC ---
Today's Communication/Plan
-
Continue Cefazolin and Steroids
Assessment / Plan
Assessment / Plan
Physical Exam
General: Not in acute distress
HEENT: Normocephalic
Respiratory: CTAB
Cardiac: S1/S2. Tachycardia.
GI: Soft, Non Tender, Non Distended and Normal Bowel Sounds
Musculoskeletal: No Cyanosis and No Edema
Skin: Generalized erythematous, blanchable + pruritic rash
Neuro: AO x 3 and Nonfocal/grossly intact
Assessment/Plan
Patient is a 74 y/o female with PMH significant for recent DRESS secondary to Lamictal who presented to ED for evaluation of increased itching, swallow dysfunction and SOB.
Presentation with diffuse/itchy rash, shortness of breath (shortness of breath now RESOLVED) and trouble swallowing
DRESS Syndrome
Peripheral Eosinophilia
History of DRESS from Lamictal -- recent 17-day admission at [facility] discharged on prednisone
- Started Lamictal about 2 months ago, after titration, had rash around 04/22/24, was started on steroids, then hospitalized at [facility], given IV steroids and PO steroids were tapered
at that time -- was hospitalized for 17 days
- She was discharged from [facility] last week with a tapering prednisone dose, and was then taking Prednisone 30 mg daily. Symptoms relapsed after discharge.
- LFTs and BUN/Cr are normal.
- Continue high dose steroids with Solumedrol very slow taper going forward
- Immunology evaluation after transfer to [facility] -- please see below
- Supportive care with wound care / topical therapies, IVFs, antipruritics, etc.
- Hydroxyzine, Cetirizine, Aquaphor moisturizer and Gabapentin for relief from itching.
Fever 102.9 F on 05/18/24
Severe Sepsis - IMPROVING
Septic Shock
Lactic Acidosis - RESOLVED
MSSA Bacteremia, suspected from skin
Immunosuppressed State from DRESS Syndrome and Steroids
Worsening Leukocytosis
-Initially admitted to ICU given airway concerns s/p epi administration x 3, was in tele --> declined --> back to IMU --> hypotensive w/ SBP in the 70s --> IV fluids and ICU (no vasopressors
needed) --> more stable now to go back to IMU
-Suspected to be part of DRESS syndrome, but hepatic, renal function is okay
-New onset of fever 102.8 on 05/18/24, continues to have fevers
-TTE with no vegetation
-Continue cefazolin 2g IV q8h (d2). Status post Daptomycin.
-No PICC line until bacteremia cleared.
-Given that patient needs dermatology and immunology to evaluate patient while hospitalized, I called [facility], and spoke to hospitalist Dr. Dewey Katz, as well as an
fence supervisor/vehicle delivery worker, both at [facility]; Dr Dewey Katz accepted the patient as an emergent transfer to [facility]
-Patient's condition worsened on 05/19/24 morning with fevers, hypotension, hypoglycemia --> ordered IV fluid bolus, Levophed, X-Ray, Echo, transfer to ICU
-I called [facility] ([phone]) again on 05/20/24 regarding the status of patient's transfer, I spoke to hospitalist Dr. Shivam Kaur, who confirmed patient was accepted to a [facility] bed at [facility], I explained patient's rash to him, he
and the food service coordinator said the church worker at [facility] will call me back
Hypoglycemia - RESOLVED
-Continue Dextrose-containing IV fluids
-Continue to monitor accuchecks, adjust IV fluids to maintain normal to hyperglycemia (in the 140 to 180 range)
Hypomagnesemia - RESOLVED
-Replacement ordered
Vaginal Discharge
- Infectious Disease requested consult to gynecology given patient's vaginal discharge to see whether she has mucosal involvement of DRESS
- No Vaginal mucosal involvement of the drug reaction and no vaginal infection as per gynecology
Asthma without Acute Exacerbation
Eczema
Family History of DRESS
- Patient with multiple 'atopic' diagnoses and interestingly family h/o DRESS in her brother (secondary to vancomycin).
Dysphagia
- EGD done at [place] was unremarkable
- Continue PPI BID
Hyponatremia - STABLE
Hypokalemia
- High urine osmoles suggest SIADH as the cause
- TSH is 1
- Na level is not significantly changed over the past month.
- PO fluid restriction
Non gap metabolic acidosis-likely due to normal saline
Microcytic anemia/thrombocytosis
Normocytic Anemia
- Unclear etiology of anemia but possibly associated with DRESS
- Heme test stools on high dose steroids.
- B12 (normal), etc.
- PPI BID while on high dose steroids.
Anxiety / Depression
- Continue sertraline. Avoid introducing any new agents.
- OK for Ativan PRN use.
Migraine headaches
Skin cancer-nonmelanoma
Hypercholesterolemia
Severe Protein Calorie Malnutrition
DVT Prophylaxis: Subcut Heparin
Diet/Speech: Regular Solids/Thin Liquids
Code Status: Full Code
On May 18, 2024, I spoke to patient's daughter, and patient's daughter . All questions and concerns were answered to satisfaction.
Bacteremia and DRESS Syndrome is a high-risk encounter.
Anticipated Discharge: > 48 hours
Subjective/Interval History
-
Date of Service: May 21, 2024
Patient was seen and examined. She reported no new symptoms, still with chills and skin rash and redness.
Objective Data
-
Labs:
Laboratory Results
05/21/24
03:28
Sodium 135
Potassium 3.9
Chloride 103
Carbon Dioxide 26
BUN 14
Creatinine 0.5 L
Glucose 100 H
Calcium 7.7 L
Total Bilirubin 0.2
AST 21
ALT 12
Alkaline Phosphatase 96
Vital Signs:
Vital Signs
Temp Pulse Resp BP Pulse Ox
98.4 F 111 22 105/65 97
05/21/24 12:30 05/21/24 15:30 05/21/24 15:30 05/21/24 14:00 05/21/24 10:30
I&O
05/20/24 05/21/24 05/22/24
06:59 06:59 06:59
Intake Total 1819 2600 / 2700 1020 / 1020
Output Total 350 / 350 275 / 275
Balance 1819 2250 / 2350 745 / 745
[2024-05-21 18:02] LABS: Glucose - Point of Care 131 mg/dl (70-99)
--- NOTE | 2024-05-21 18:45 | PTCARENOTE ---
RN received patient from ICU,pt is oob to chair eating dinner. Pt daughter is at bedside aiding in feeding. Patient vital signs are stable on room air. RN reviewed medications for the evening with patient and family members. Pt aware of how to use
call solorio/phone for kitchen. Shift report given to oncoming paraeducator IMU RN.
[2024-05-21] MEDS: MUCINEX 1200 MG PO (20:32)
[2024-05-21] MEDS: ATIVAN 0.5 MG PO (20:33)
--- NOTE | 2024-05-21 22:11 | PTCARENOTE ---
Rounded after receiving report. Daughter and at bedside. Pt OOB in chair eating dinner, family assisting. Sinus tach on the monitor. Tremors present. Patient assisted back to bed after eating, offered to use BSC, pt declined. Pt is SBA,
denies dizziness. Hydrophor applied generously to abd/chest/upper and lower back/ legs and arms. meds given including prn ativan per pt and daughter request. 10 minutes later came out to nursing station says pt is very itchy and wants
benadryl too. IV flushed and pt yelped in pain, reporting burning sensation. VAT team paged, warm blankets applied to arms in the meantime. Entire skin is red, scaly and irritated. Left side of abd with small amount of blood, pt stated she just
scratched. Gown and bill changed, hydrophor absorbed into skin and skin appears scaly and dry again; hydrophor applied again to entire body. Patient and very thankful for care. Call solorio and tray table left within reach.
[2024-05-21 23:25] LABS: Glucose - Point of Care 90 mg/dl (70-99)
[2024-05-22] VITALS (12 sets, daily range): BP systolic 92–142; BP diastolic 60–110; BMI 27.4
[2024-05-22] MEDS: ATIVAN 0.5 MG PO ×2 (05:03→20:34)
[2024-05-22] MEDS: BENADRYL 25 MG IV ×3 (05:03→20:34)
[2024-05-22 05:12] LABS: Hematocrit 26.7 % (37.0-47.0); Hemoglobin 8.6 g/dL (12.0-16.0); Mean Corp Hgb Conc. 32.2 g/dL (33.0-37.0); Mean Corpuscular Hgb 27.4 pg (27.0-31.0); Mean Platelet Volume 8.7 fL (7.4-10.4); Platelet Count 347 10^3/uL (130-400); Red Blood Cell Count 3.14 10^6/uL (4.20-5.40); Red Cell Dist. Width 17.2 % (11.5-14.5)
--- NOTE | 2024-05-22 05:21 | PTCARENOTE ---
No void this shift. Pt placed on commode, large amount of flatus but no void. Bladder scan showing 280mL. Pt denies feeling uncomfortable. JOY Soler made aware.
[2024-05-22 05:35] LABS: ALT (SGPT) < 10 U/L (0-35); AST (SGOT) 19 U/L (14-36); Albumin 2.2 g/dl (3.5-5.0); Alkaline Phosphatase 95 U/L (38-126); Blood Urea Nitrogen 13 mg/dl (7-17); Calcium 7.7 mg/dl (8.4-10.2); Carbon Dioxide 26 mmol/L (22-30); Chloride 101 mmol/L (98-107); Estimated Creatinine Clearance 74 ml/min; Glucose 70 mg/dl (70-99); Magnesium 1.9 mg/dl (1.6-2.3); Potassium 3.6 mmol/L (3.5-5.1); Sodium 133 mmol/L (135-145); Total Bilirubin 0.2 mg/dl (0.2-1.3); Total Protein 4.9 g/dl (6.3-8.2); eGFR > 60.00
[2024-05-22 06:36] LABS: Glucose - Point of Care 59 mg/dl (70-99)
[2024-05-22 07:02] LABS: Glucose - Point of Care 75 mg/dl (70-99)
--- NOTE | 2024-05-22 08:10 | W.PN.HOSP.TC ---
Today's Communication/Plan
-
Steroids increased after discussion with [facility] Medical Claims Analyst Dr. Aguilar -- need to do 2 mg/kg per day of Prednisone
Updated patient's family multiple times today
Transfer destination changed to [facility] in an effort to get patient to [facility] in a more expedited fashion
Continue antibiotics
Patient needs to stay in IMU
Assessment / Plan
Assessment / Plan
Physical Exam
General: Not in acute distress
HEENT: Normocephalic
Respiratory: CTAB
Cardiac: S1/S2. Tachycardia at times.
GI: Soft, Non Tender, Non Distended and Normal Bowel Sounds
Musculoskeletal: No Cyanosis and No Edema
Skin: Generalized erythematous, pruritic rash
Neuro: AO x 3 and Nonfocal/grossly intact
Assessment/Plan
Patient is a 74 y/o female with PMH significant for recent DRESS secondary to Lamictal who presented to ED for evaluation of increased itching, swallow dysfunction and SOB.
Presentation with diffuse/itchy rash, shortness of breath (shortness of breath now RESOLVED) and trouble swallowing
DRESS Syndrome
Peripheral Eosinophilia
History of DRESS from Lamictal -- recent 17-day admission at [facility] discharged on prednisone
- Started Lamictal about 2 months ago, after titration, had rash around 04/22/24, was started on steroids, then hospitalized at [facility], given IV steroids and PO steroids were tapered
at that time -- was hospitalized for 17 days
- She was discharged from [facility] last week with a tapering prednisone dose, and was then taking Prednisone 30 mg daily. Symptoms relapsed after discharge.
- Continue high dose steroids
- Immunology evaluation after transfer to [facility] -- please see below
- Supportive care with wound care / topical therapies, IVFs, antipruritics, etc.
- Hydroxyzine, Cetirizine, Aquaphor moisturizer for relief from itching.
- Check CBC (with differential to monitor eosinophil counts) and CMP daily -- need to watch carefully for any liver, kidney, cardiac etc. injury
Fever 102.9 F on 05/18/24
Severe Sepsis - IMPROVING
Septic Shock
Lactic Acidosis - RESOLVED
MSSA Bacteremia, suspected from skin
Immunosuppressed State from DRESS Syndrome and Steroids
Worsening Leukocytosis
-Initially admitted to ICU given airway concerns s/p epi administration x 3, was in tele --> declined --> back to IMU --> hypotensive w/ SBP in the 70s --> IV fluids and ICU (no vasopressors
needed) --> more stable and was transferred back to IMU
-Suspected to be part of DRESS syndrome, but hepatic, renal function is okay
-New onset of fever 102.8 on 05/18/24
-TTE with no vegetation
-Continue cefazolin 2g IV q8h (d2). Status post Daptomycin.
-No PICC line until bacteremia cleared.
-Repeat blood cultures are negative so far
-Given that patient needs dermatology and immunology to evaluate patient while hospitalized, I called [facility], and spoke to hospitalist Dr. Dewey Katz, as well as an
exotic dancer/aircraft assembler, both at [facility]; Dr Dewey Katz accepted the patient as an emergent transfer initially to [facility], but later when I spoke to [facility]ist Dr. Kiser on 05/22/24, she
thought it
better for the patient to go to [facility] as likely to have available bed earlier than [facility]
-Patient's condition worsened on 05/19/24 morning with fevers, hypotension, hypoglycemia --> ordered IV fluid bolus, Levophed, X-Ray, Echo, transfer to ICU
-I called [facility] ([phone]) again on 05/20/24 regarding the status of patient's transfer, I spoke to hospitalist Dr. Shivam Kaur, who confirmed patient was accepted to a medsurg bed at [facility], I explained
patient's rash to him, he and the sales office coordinator said the visual merchandising manager at [facility] would call me back, but I got a call back on 05/22/24
-I spoke on May 22, 2024, to hospitalist Dr. Kiser and [facility] visual merchandising manager Dr. Aguilar who recommended, that based on the CBC counts/eosinophil count, increase the Prednisone (or equivalent) to 1.5 mg/kg to 2 mg/kg --
therefore, ordered Prednisone 130 mg daily
Hypoglycemia
-Continue Dextrose-containing IV fluids
-Continue to monitor accuchecks, adjust IV fluids to maintain normal to hyperglycemia (in the 140 to 180 range)
Hypomagnesemia - RESOLVED
-Replacement ordered
Vaginal Discharge
- Infectious Disease requested consult to gynecology given patient's vaginal discharge to see whether she has mucosal involvement of DRESS
- No Vaginal mucosal involvement of the drug reaction and no vaginal infection as per gynecology
Asthma without Acute Exacerbation
Eczema
Family History of DRESS
- Patient with multiple 'atopic' diagnoses and interestingly family h/o DRESS in her brother (secondary to vancomycin).
Dysphagia
- EGD done at [facility] was unremarkable
- Continue PPI BID
Hyponatremia - STABLE
Hypokalemia
- High urine osmoles suggest SIADH as the cause
- TSH is 1
- Na level is not significantly changed over the past month.
- PO fluid restriction
Non gap metabolic acidosis-likely due to normal saline
Microcytic anemia/thrombocytosis
Normocytic Anemia
- Unclear etiology of anemia but possibly associated with DRESS
- Heme test stools on high dose steroids.
- B12 (normal), etc.
- PPI BID while on high dose steroids.
Anxiety / Depression
- Continue sertraline. Avoid introducing any new agents.
- OK for Ativan PRN use.
Migraine headaches
Skin cancer-nonmelanoma
Hypercholesterolemia
Severe Protein Calorie Malnutrition
DVT Prophylaxis: Subcut Heparin
Diet/Speech: Regular Solids/Thin Liquids
Code Status: Full Code
On May 18, 2024, I spoke to patient's daughter, and patient's daughter . All questions and concerns were answered to satisfaction.
Bacteremia and DRESS Syndrome is a high-risk encounter.
I updated patient's and also updated patient's daughter twice today. I also spoke extensively with [facility] Dr. Kiser as well as [facility] Medical Claims Analyst Dr. Aguilar. Total time spent on caring for the patient today was 100 minutes.
Anticipated Discharge: > 48 hours
Subjective/Interval History
-
Date of Service: May 22, 2024
Patient was seen and examined. She still has itching and skin redness and flaking.
Objective Data
-
Labs:
Laboratory Results
05/22/24
04:35
WBC 19.0 H
Hgb 8.6 L
Hct 26.7 L
Plt Count 347
Sodium 133 L
Potassium 3.6
Chloride 101
Carbon Dioxide 26
BUN 13
Creatinine 0.6
Glucose 70
Calcium 7.7 L
Total Bilirubin 0.2
AST 19
ALT < 10
Alkaline Phosphatase 95
Vital Signs:
Vital Signs
Temp Pulse Resp BP Pulse Ox
97.8 F 115 19 125/94 95
05/22/24 06:54 05/22/24 07:30 05/22/24 07:30 05/22/24 06:00 05/22/24 07:30
I&O
05/21/24 05/22/24 05/23/24
06:59 06:59 06:59
Intake Total 2600 / 2700 1500 / 1500
Output Total 350 / 350 575 / 575
Balance 2250 / 2350 925 / 925
[2024-05-22] MEDS: D5LR 1000 IV (09:12)
[2024-05-22] MEDS: NEURONTIN 100 MG PO ×2 (09:18→15:31)
[2024-05-22] MEDS: PROTONIX 40 MG PO ×2 (09:18→20:34)
[2024-05-22] MEDS: ZYRTEC 10 MG PO (09:20)
[2024-05-22] MEDS: MUCINEX PO ×2 (09:20→20:26)
[2024-05-22] MEDS: ATARAX 25 MG PO ×3 (09:20→21:51)
[2024-05-22] MEDS: ANCEF 10 IV ×3 (09:25→23:39)
[2024-05-22] MEDS: SOLU-MEDROL PF 60 MG IV (09:29)
[2024-05-22] MEDS: HEPARIN 5000 UNITS SC ×2 (09:33→20:34)
[2024-05-22] MEDS: HYDROPHOR 1 APPLIC TOPICAL (09:33)
[2024-05-22 09:53] LABS: Glucose - Point of Care 96 mg/dl (70-99)
--- NOTE | 2024-05-22 09:58 | W.PN.ID1 ---
Date of Service
Date of Service: May 22, 2024
Today's Communication
Wean steroid to prednisone 60mg daily.
Continue cefazolin.
Assessment / Plan
# MSSA bacteremia (4 sets bcx prior to abx)
# Severe sepsis - improving
- Bacteremia from skin source with diffuse rash/ sloughing skin
- Fever resolved.
- Leukocytosis trended up due to steroid
- Repeat blood cx's x2 (on abx) quickly cleared.
- TTE no gross vegetation
- Continue cefazolin 2g IV q8h ()
- Eventual PICC
# DRESS syndrome flare-up while on quick steroid taper
- DRESS from Lamictal, recent hospitalization at [facility] (04/24 to 05/09), dc'd on prednisone taper down to 20mg/d at home
Fortunately without liver, lung, and kidney involvement at this time
- Not uncommon for DRESS flare-up during steroid taper especially when taper too quickly.
- rash, dysphagia improved
- Eosinophilia trending down from 25% -> 40% -> 47% ->20%
- Decrease methylprednisolone 60mg IV q24 to prednisone 60mg po daily. Long slow taper over 8 to 12 weeks.
- Trend eosinophils
- Supportive care.
Still with uncontrollable pruritus despite mutiple measures.
Hospitalist has reached out to Dermatology at [facility] 2 to 3 days ago, awaiting callback.
Consult Wound Care to assist dry peeling skin.
# Vaginal discharge x 1 month.
- Appreciate KNIFE MACHINE OPERATOR eval. Drainage from rash involving vulva. No mucosal involvement. No infection.
# Additional Past Medical History:
Asthma
Eczema
Anxiety/depression
Migraine headaches
Chief Complaint
-: Fever, Bacteremia and Other (DRESS)
Subjective / Review of Systems
Per nurse, retaining urine.
Pt still with significant itching. Very uncomfortable. Can't help but scratch.
Vital Signs / Physical Exam
Vital Signs
Vital Signs
Temp Pulse Resp BP Pulse Ox
97.8 F 115 19 125/94 95
05/22/24 06:54 05/22/24 07:30 05/22/24 07:30 05/22/24 06:00 05/22/24 07:30
Physical Exam
Constitutional: Chronically Ill
Eyes: No Conjunctival Hemorrhage and Sclera Anicteric
Cardiovascular: Regular Rate and S1/S2
Pulmonary: Clear
Gastrointestinal: Soft, Non Tender, Non Distended and Normal Bowel Sounds
Skin: Dry (Facial peeling skin improving with Aquaphor. Bilateral arms and legs now with increased dry peeling skin. ) and Rash (Blanching diffuse erythroderma stable. )
Neurological: AO x 3
Objective Data
Lab Data
Lab Results
05/22/24 04:35
05/22/24 04:35
ESR 19 mm/hour (0-20) 05/17/24 02:22
PT 15.9 Sec (11.4-14.6) H 05/17/24 06:18
INR 1.22 05/17/24 06:18
APTT 26.7 Sec (23.4-35.0) 05/17/24 06:18
Estimated Creat Clear 74 ml/min 05/22/24 04:35
Lactic Acid 1.9 mmol/L (0.7-2.0) 05/20/24 03:01
Total Bilirubin 0.2 mg/dl (0.2-1.3) 05/22/24 04:35
AST 19 U/L (14-36) 05/22/24 04:35
ALT < 10 U/L (0-35) 05/22/24 04:35
Alkaline Phosphatase 95 U/L (38-126) 05/22/24 04:35
C-Reactive Protein 43.50 mg/L (0.0-10.00) H 05/17/24 02:22
Most recent labs reviewed.
Micro Results:
05/20/24 05:12 Blood Culture - Preliminary
Blood/Venous No Growth in 48 hours- Final report to follow
05/21/24 03:28 Blood Culture - Preliminary
Blood/Venous No Growth in 24 hours- Final report to follow
05/20/24 16:02 Blood Culture - Preliminary
Blood/Venous No Growth in 24 hours- Final report to follow
05/18/24 02:10 Blood Culture - Final
Blood/Venous S aureus-Methicillin Sensitive
Gram Stain - Final
05/18/24 19:51 Blood Culture - Final
Blood/Venous S aureus-Methicillin Sensitive
Gram Stain - Final
05/18/24 20:35 Blood Culture - Final
Blood/Venous S aureus-Methicillin Sensitive
Gram Stain - Final
05/18/24 01:05 Blood Culture - Final
Blood/Venous S aureus-Methicillin Sensitive
Gram Stain - Final
05/18/24 01:05 Influenza Types A & B (JAQUELIN) - Final
Nasal Swab Negative for Influenza A & B, NAAT
Negative results must be combined with clinical observations
and patient history.
Nucleic Acid Amplification test (NAAT)performed on the
Accion platform.
05/17/24 CXR: No acute cardiopulmonary process.
05/19/24 CXR: No evidence of active cardiopulmonary disease.
Care Review
Plan reviewed with: Nurse (Lauren Santiago) and Physician (Dr. Powers)
[2024-05-22 10:52] LABS: Absolute Neutrophils -Man Diff 6.6 10^3/uL (1.4-6.5); Atypical Lymphocytes 1 %; Band Neutrophils 5 % (0-3); Eosinophils 46 % (0-6); Hypochromasia 1+; Lymphocytes 10 % (20-51); Microcytosis 1+; Monocytes 5 % (2-9); Myelocytes 2 % (-); Normal RBC Morphology No; Ovalocytes 1+; Platelets Checked Yes; Segmented Neutrophils 30 % (42-75)
[2024-05-22 10:53] LABS: Total Cells Counted 100
[2024-05-22] MEDS: ZOLOFT PO (11:05)
--- NOTE | 2024-05-22 11:23 | WOUNDNOTE ---
BACK (with photo flash)
--- NOTE | 2024-05-22 11:23 | WOUNDNOTE ---
ABDOMEN (with photo flash)
--- NOTE | 2024-05-22 11:28 | WOUNDNOTE ---
COCCYX CREASE (with photo flash)
--- NOTE | 2024-05-22 11:30 | WOUNDNOTE ---
[facility] RN note: Patient admitted with DRESS rash. Started Lamictal for mood 2 months ago and had been stopped. Patient lives with . SHe was recently in [facility] for 17 days with DRESS. Plan is transfer to [facility] when bed available.
See H&P for complete history.
PMH: asthma, eczema, depression, migraine headaches, non melanoma skin cancer excisions.
Wound Location and type/assessment: Patient admitted with: generalized dry itchy skin rash d/t DRESS. Coccyx crease MASD. Couple dermal small openings lower back/sacral area, R medial arm, L lateral chest suspect, lower abdomen suspect from rash,
patient scratching. Patient is on systemic steroid, Cephazolin, Zyrtec, Benadryl, topical Aquaphor ointment.
Appetite: fair.
Pressure redistribution devices in place: Centrella Max air. She has an air chair cushion. She can turn self.
Plan: Aquaphor ointment applied to back/flank, shoulders, Le's. 4 inch cotton tubular stockinet applied under L arm BP cuff for comfort. Assisted RN Educator with changing patient's cotton T shirt. Gallon of distilled water left in room which can
be used for cleaning/hydrating skin prior to Aquaphor application. Discussed with JOEL Spann. Notified Dr. Jones management of generalized skin rash is not part of this lead technical writer scope of practise, however, will take skin photos for documentation,
dermatology consult recommended. Dr. Jones stated hospitalist called blueprint tracer 2 days ago and is waiting for return call. JOEL Spann reports patient's rash looks better to her, less red.
Will follow peripherally as needed.
--- NOTE | 2024-05-22 11:31 | CM ---
Patient with Hx DRESS Syndrome. Room air. Receiving IVF, IV Abx, IV Steroids switched to PO Prednisone. Seen by wound care nurse. PT/OT recommend acute rehab.
Re-confirmed with Dr Powers plan is transfer to [facility].
Plan transfer to [facility] when bed is available.
--- NOTE | 2024-05-22 11:40 | PTCARENOTE ---
Addendum entered by Maria Ines Garcia RN 05/22/24 11:49:
Dr. Zhou notified of bladder scan results. Will continue to monitor urine output.
Original Note:
Patient is out of bed to chair, heart rate increases with activity to the 120s. While at rest, heart rate is sinus tach 107. Skin care provided, wound care consult completed. Patient voided 75ml in the commode and bladder scan was 266. Patient had a
bowel movement. Fair appetite today.
[2024-05-22 11:57] LABS: Glucose - Point of Care 117 mg/dl (70-99)
--- NOTE | 2024-05-22 14:18 | PTCARENOTE ---
Patient is having poor urine output today, only voided 75ml. Bladder scan was 451, patient st. cath for 400. White drainage observed from vagina opening, unable to ascertain if its from urethra or vagina. Discussed with Dr. Zhou.
[2024-05-22 14:35] LABS: Urine Albumin Trace (Neg - Trace); Urine Bilirubin Negative (Negative); Urine Character Clear (Clear); Urine Color Yellow; Urine Glucose Negative (Negative); Urine Ketone Negative (Negative); Urine Leukocyte Trace (Negative); Urine Nitrite Negative (Negative); Urine Occult Blood Negative (Negative); Urine Urobilinogen Negative (Neg - 1+); Urine pH 6.5 (5.0-9.0)
[2024-05-22] MEDS: SOLU-MEDROL PF 40 MG IV (15:31)
[2024-05-22 16:31] LABS: Urine Bacteria Few (Negative); Urine Red Blood Cell 0-2 /HPF (0-2); Urine Squamous Cell 16-20 /LPF (Few)
--- NOTE | 2024-05-22 17:20 | PTCARENOTE ---
Patients daughter upset about patient being on Gabapentin since it can cause DRESS syndrome. Informed Dr. Oneal and medication is to be stopped.
[2024-05-22] MEDS: HYDROPHOR TOPICAL (20:27)
[2024-05-22 21:57] LABS: Glucose - Point of Care 181 mg/dl (70-99)
[2024-05-23] VITALS: BP 138/79
--- NOTE | 2024-05-23 00:22 | PTCARENOTE ---
Received pt from day shift RN. Daughter at bedside. Pt aaox3 and anxious. PRN Ativan given (see MAR). Sinus tach on the monitor. VSS. IVF infusing. Pt has a bed at [facility]. This RN called and gave verbal report to JOEL Tobias. During
report clarified what type of unit pt will be on and was notified it is a medsur floor with tele capabilities. In Hospitalist progress note, Dr. Powers stated that pt needs to stay in IMU. This RN reached out to LYNDA Rojas and Dr. Powers to
clarify that she was being transferred to an appropriate level of care. Dr. Powers confirmed that telemetry is appropriate. Transport via ambulance [facility] for 233. Pt left floor with paramedics at 0015. All belongings taken with daughter.
== END 2024-05-23 00:38 | disposition short-term general hospital (02) | DRG 814 ==
LOC: IMU 05:22
PROVIDERS: Nurse Practitioner Family; Radiology Diagnostic Radiology; ADMITTING PHYSICIAN Hospitalist; ATTENDING PHYSICIAN Hospitalist; CONSULT PHYSICIAN Internal Medicine Critical Care Medicine; CONSULT PHYSICIAN Internal Medicine Infectious Disease; CONSULT PHYSICIAN Obstetrics & Gynecology Gynecology; EMERGENCY PHYSICIAN Student in an Organized Health Care Education/Training Program; FAMILY PHYSICIAN Internal Medicine
PROC: 02HV33Z Insertion of Infusion Device into Superior Vena Cava, Percutaneous Approach (ICD-10-PCS; 2024-05-19)
DX: D72.12 Drug rash with eosinophilia and systemic symptoms syndrome (principal); A41.59 Other Gram-negative sepsis; R65.21 Severe sepsis with septic shock; E43 Unspecified severe protein-calorie malnutrition; E87.1 Hypo-osmolality and hyponatremia; E87.20 Acidosis, unspecified; T42.6X5A Adverse effect of other antiepileptic and sedative-hypnotic drugs, initial encounter; J45.909 Unspecified asthma, uncomplicated; F32.A Depression, unspecified; F41.9 Anxiety disorder, unspecified; L30.9 Dermatitis, unspecified; M81.0 Age-related osteoporosis without current pathological fracture; E87.6 Hypokalemia; D50.9 Iron deficiency anemia, unspecified; E78.00 Pure hypercholesterolemia, unspecified; E86.1 Hypovolemia; G43.909 Migraine, unspecified, not intractable, without status migrainosus; D84.821 Immunodeficiency due to drugs; T38.0X5A Adverse effect of glucocorticoids and synthetic analogues, initial encounter; D75.839 Thrombocytosis, unspecified; E83.42 Hypomagnesemia; E16.2 Hypoglycemia, unspecified; N89.8 Other specified noninflammatory disorders of vagina; Z68.27 Body mass index [BMI] 27.0-27.9, adult; Z88.1 Allergy status to other antibiotic agents; Z88.8 Allergy status to other drugs, medicaments and biological substances; Z79.899 Other long term (current) drug therapy; Z79.52 Long term (current) use of systemic steroids
CPT/HCPCS: 71045; 80048; 80053; 81003; 81015; 82248; 82550; 82607; 82746; 82962; 83540; 83550; 83605; 83690; 83735; 83930; 83935; 84100; 84300; 84443; 84484; 85025; 85610; 85652; 85730; 86140; 87040; 87147; 87186; 87205; 87502; 87811; 92610; 93005; 93306; 96361; 96372; 96374; 96375; 97163; 97167; 97530; 99291; J0878

== ENCOUNTER 2024-10-02 06:23 | Day surgery (SDC) | payer MEDICARE, OTHER, SELFPAY | END 2024-10-02 11:07 | disposition home or self-care (01) | LOC: GI 06:23 | PROVIDERS: ATTENDING PHYSICIAN Internal Medicine Gastroenterology | DX: Z12.11 Encounter for screening for malignant neoplasm of colon (principal); R19.5 Other fecal abnormalities; K64.9 Unspecified hemorrhoids; D12.2 Benign neoplasm of ascending colon; K63.5 Polyp of colon | CPT/HCPCS: 45385; 88305 ==